=== PATIENT | female | born 1970 | race Caucasian/White ===

== ENCOUNTER → 2016-10-10 | Outpatient (CLI) | payer OTHER ==
--- NOTE | 2016-10-10 11:09 | MR ---
EXAMINATION TYPE: MR lumbar spine wo con DATE OF EXAM: 10/10/2016 10:52 AM COMPARISON: NONE HISTORY: Back pain, left leg pain TECHNIQUE: T1 and T2 axial and sagittal images of the lumbar spine are submitted. FINDINGS: There is no abnormal signal seen within the visualized spinal cord or paraspinal soft tissu es. L1-L2: Normal disc appearance without desiccation. No herniation, protrusion or disc bulging. No sruthi l stenosis is present. Foramina are patent bilaterally. L1 and small L2 hemangiomas. L2-L3: Normal disc appearance without desiccation. No herniation, protrusion or disc bulging. No sruthi l stenosis is present. Foramina are patent bilaterally. L3 hemangioma. L3-L4: Normal disc appearance without desiccation. No herniation, protrusion or disc bulging. No sruthi l stenosis is present. Foramina are patent bilaterally. Facet arthropathy noted. L4-L5: Mild disc desiccation. Mild posterior disc bulge. No herniation protrusion or central stenosis . Visualized foramina are patent. Facet arthropathy noted. L5-S1: Mild to moderate disc desiccation. Mild posterior disc bulge. No herniation protrusion or cent ral stenosis. Stable facet joint arthropathy. No foraminal encroachment. Lumbar segments are intact. Bone marrow heterogeneity is seen which may reflect bone marrow reconversion. [place] proliferative diso rder or other processes not excluded. Correlate with CBC. No paraspinal masses are identified. Conus medullaris has a normal appearance. IMPRESSION: 1. Mild degenerative disc disease with mild posterior disc bulging is stable. 2. Multiple hemangiomas. 3. Bone marrow heterogeneity as discussed above.
== END | disposition home or self-care (01) ==
LOC: RADMRIMAIN 09:54
PROVIDERS: ATTEND Psychiatry & Neurology Neurology
DX: M51.26 Other intervertebral disc displacement, lumbar region (principal); M51.36 Other intervertebral disc degeneration, lumbar region; D18.09 Hemangioma of other sites
CPT/HCPCS: 72148

== ENCOUNTER → 2016-10-23 | Outpatient (CLI) | payer OTHER ==
[2016-10-23 13:45] LABS: Basophils % (A) 1 %; CH 34.4; CHCM 33.4; Eosinophils # (A) 0.3 k/uL (0-0.7); Eosinophils % (A) 7 %; HCT 44.1 % (34.0-46.0); HDW 2.06; HGB 14.3 gm/dL (11.4-16.0); Luc # (Auto) 0.17; Luc % (Auto) 4; Lymphocytes # (A) 1.1 k/uL (1.0-4.8); Lymphocytes % (A) 28 %; MCH 33.5 pg (25.0-35.0); MCHC 32.4 g/dL (31.0-37.0); MCV 103.4 fL (80.0-100.0); Macrocytosis Slight; Mean Platelet Volume 8.4; Monocytes # (A) 0.2 k/uL (0-1.0); Monocytes % (A) 4 %; Neutrophils # (A) 2.4 k/uL (1.3-7.7); Neutrophils % (A) 57 %; RBC 4.26 m/uL (3.80-5.40); RDW 12.4 % (11.5-15.5); WBC 4.1 k/uL (3.8-10.6); WBC (Perox) 4.21
== END ==
LOC: LABWHC1 12:38
PROVIDERS: ATTEND Psychiatry & Neurology Pain Medicine
DX: D47.1 Chronic myeloproliferative disease (principal)
CPT/HCPCS: 36415; 84165; 85025; 86334

== ENCOUNTER → 2016-11-06 | Outpatient (CLI) | payer OTHER ==
[2016-11-06 13:24] LABS: CH 34.5; CHCM 33.7; HCT 43.4 % (34.0-46.0); HDW 2.14; HGB 14.2 gm/dL (11.4-16.0); MCH 33.6 pg (25.0-35.0); MCHC 32.8 g/dL (31.0-37.0); MCV 102.6 fL (80.0-100.0); Macrocytosis Slight; RBC 4.23 m/uL (3.80-5.40); RDW 12.3 % (11.5-15.5); WBC 3.5 k/uL (3.8-10.6)
[2016-11-06 13:44] LABS: C Reactive Protein <5.0 mg/L (<10.0); Calcium 10.2 mg/dL (8.4-10.2); Creatine Kinase 72 U/L (30-135); Magnesium 1.8 mg/dL (1.6-2.3)
[2016-11-06 14:26] LABS: Erythrocyte Sedimentation Rate 8 mm/hr (0-20)
[2016-11-06 14:29] LABS: Vitamin B12 944 pg/mL (239-931)
[2016-11-06 18:28] LABS: Hemoglobin A1C 5.4 % (4.2-6.1)
[2016-11-07 07:16] LABS: Cyclic Citrullinated Pep IgG 7 UNITS (<20)
[2016-11-08 06:18] LABS: Vitamin E (Alpha Tocopherol) 1093 ug/dL (500-1800)
[2016-11-10 19:03] LABS: Nicotinamide 22 ng/mL; Nicotinic Acid None Detected; Nicotinuric Acid None Detected
[2016-11-16 16:35] LABS: Vitamin K 145 pg/mL (80-1160)
== END | disposition home or self-care (01) ==
LOC: LABWHC1 12:48
PROVIDERS: ATTEND Psychiatry & Neurology Neurology
DX: M79.7 Fibromyalgia (principal); G89.29 Other chronic pain
CPT/HCPCS: 36415; 82306; 82310; 82550; 82607; 83036; 83519; 83735; 84207; 84425; 84446; 84590; 84591; 84597; 85027; 85652; 86140; 86200; 86235

== ENCOUNTER → 2017-03-05 | Outpatient (CLI) | payer OTHER ==
--- NOTE | 2017-03-05 10:35 | US ---
EXAMINATION TYPE: US thyroid st tissue head/neck DATE OF EXAM: 03/05/2017 COMPARISON: NONE CLINICAL HISTORY: 46-year-old female E04.1 thyroid nodule. On thyroid medication x 11 yrs.; prior sc an at [facility] TECHNIQUE: Multiple sonographic images of the thyroid gland are obtained. FINDINGS: GLAND SIZE: Right Lobe: 3.7 x 1.0 x 1.0 cm Overall Parenchyma: heterogenous Left Lobe: 3.2 x 1.1 x 0.8 cm Overall Parenchyma: heterogeneous Isthmus Thickness: 0.2 cm NODULES RIGHT: # of nodules measured on right: 0 LEFT: # of nodules measured on left: 1 1. 1.2 X 0.5 x 0.7 cm isoechoic solid nodule at the mid pole with well-defined margins. This nodul e is wider than tall and shows intranodular vascularity. Prior size: no prior here to compare ISTHMUS: # of nodules measured in the isthmus: 0 IMPRESSION: 1. The patient's prior exam is not available for comparison. There is a single solid nodule on the le ft measuring 1.2 cm. 2. Diffuse glandular heterogeneity could reflect chronic hypothyroidism or chronic thyroiditis.
== END | disposition home or self-care (01) ==
LOC: RADUSWWP 09:29
PROVIDERS: ATTEND Internal Medicine Endocrinology, Diabetes & Metabolism
DX: E04.1 Nontoxic single thyroid nodule (principal); E03.8 Other specified hypothyroidism; E07.89 Other specified disorders of thyroid
CPT/HCPCS: 76536; 84439; 84443

== ENCOUNTER → 2017-07-02 | Outpatient (CLI) | payer OTHER ==
--- NOTE | 2017-07-03 08:10 | MR ---
EXAMINATION TYPE: MR lumbar spine wo con DATE OF EXAM: 07/02/2017 COMPARISON: 10/10/2016 HISTORY: Low back pain CONTRAST: 0 mL intravenous Gadavist. TECHNIQUE: Multiplanar, multisequence images of the lumbar spine were acquired. FINDINGS: L5-S1: No focal disc herniation or significant disc bulge. No spinal canal stenosis or neural foramin al stenosis. Mild facet hypertrophy is present. L4-L5: No focal disc herniation or significant disc bulge is evident. There is some anterior thecal s ac flattening. No spinal canal stenosis or neural foraminal stenosis is present. L3-L4: No significant disc bulge or disc herniation. No spinal canal stenosis. No foraminal stenosi s. . L2-L3: No significant disc bulge or disc herniation. No spinal canal stenosis. No foraminal stenosi s. L3 hemangioma is likely present. L1-L2: No significant disc bulge or disc herniation. No spinal canal stenosis. No foraminal stenosi s. L1 hemangioma is again identified.. T12-L1: No significant disc bulge or disc herniation. No spinal canal stenosis. No foraminal stenos is. . There is some diffuse heterogeneity throughout the lumbar spine osseous structures. Findings are stab le over the interval. IMPRESSION: 1. Minimal degenerative disc changes lower lumbar spine without stenosis. 2. Heterogenous appearance to the osseous bone marrow is stable over the interval. Couple of hemangio mas are identified.
== END | disposition home or self-care (01) ==
LOC: RADMRIMAIN 11:47
PROVIDERS: ATTEND Psychiatry & Neurology Neurology
DX: M47.816 Spondylosis without myelopathy or radiculopathy, lumbar region (principal); D18.00 Hemangioma unspecified site; Z88.2 Allergy status to sulfonamides; Z88.6 Allergy status to analgesic agent
CPT/HCPCS: 72148

== ENCOUNTER → 2017-10-09 | Outpatient (CLI) | payer OTHER ==
--- NOTE | 2017-10-09 15:30 | MR ---
EXAMINATION TYPE: MR cervical spine wo con DATE OF EXAM: 10/09/2017 COMPARISON: 10/22/2012 HISTORY: Cervicalgia, crum, neck pain and numbness TECHNIQUE: Multiplanar, multisequence images of the cervical spine were acquired. C2-C3: No evidence for degenerative disc disease. No disc bulge/herniation or protrusion. No Canal stenosis. Foramina are patent bilaterally. C3-C4: No evidence for degenerative disc disease. No disc bulge/herniation or protrusion. No Canal stenosis. Foramina are patent bilaterally. C4-C5: No evidence for degenerative disc disease. No disc bulge/herniation or protrusion. No Canal stenosis. Foramina are patent bilaterally. C5-C6: No evidence for degenerative disc disease. No disc bulge/herniation or protrusion. No Canal stenosis. Foramina are patent bilaterally. C6-C7: Degenerative disc disease. Uncovertebral joint hypertrophy and left paracentral disc bulging i s stable with disc capped by spur resulting in mild to moderate left foraminal encroachment. No spina l cord contact or canal stenosis. C7-T1: No evidence for degenerative disc disease. No disc bulge/herniation or protrusion. No Canal stenosis. Foramina are patent bilaterally. Cervical segments are intact. There is normal alignment. Cervical spinal cord is of normal signal. Craniovertebral junction relationships are within normal limits. IMPRESSION: 1. Stable MRI. At C6-C7 there is degenerative disc disease and uncovertebral joint hypertrophy greater on the left. Paracentral disc bulging to the left is stable capped by spur resulting in mild to moderate left fora julia encroachment.
== END | disposition home or self-care (01) ==
LOC: RADMRIMAIN 09:42
PROVIDERS: ATTEND Psychiatry & Neurology Neurology
DX: M50.223 Other cervical disc displacement at C6-C7 level (principal); M50.323 Other cervical disc degeneration at C6-C7 level; M53.82 Other specified dorsopathies, cervical region; M46.02 Spinal enthesopathy, cervical region; Z88.2 Allergy status to sulfonamides; Z88.6 Allergy status to analgesic agent
CPT/HCPCS: 72141

== ENCOUNTER 2017-10-18 12:07 | Day surgery (SDC) | payer OTHER ==
[2017-10-18 12:23] VITALS: BP 153/89; PULSE 95; RESP 20; TEMP 98.5
[2017-10-18] MEDS ORDERED: ALPRAZolam 0.5 MG TAB PO STA (12:27)
--- NOTE | 2017-10-18 15:05 | US ---
EXAMINATION TYPE: US FNA thyroid DATE OF EXAM: 10/18/2017 COMPARISON: Ultrasound 03/05/2017 HISTORY: Thyroid nodule. Maximal barrier technique was utilized. After informed consent, skin overlying the lesion was locali zed with ultrasound and the overlying skin prepped and draped. Ultrasound was utilized using sterile technique. Lidocaine was used for local anesthesia. Five passes with a 25-gauge needle were made int o the nodule and aspirated specimen was submitted to cytology. Following the procedure hemostasis ac hieved. No immediate complication. The patient discharged in stable condition. IMPRESSION: STATUS POST ULTRASOUND GUIDED FINE NEEDLE ASPIRATION OF THYROID NODULE, PATHOLOGY IS PEND ING. THIS PROCEDURE WAS PERFORMED BY THE UNDERSIGNED.
== END 2017-10-18 13:45 | disposition home or self-care (01) ==
LOC: RADPROMAIN 12:07
PROVIDERS: ATTEND Surgery
DX: E04.1 Nontoxic single thyroid nodule (principal)
CPT/HCPCS: 10022; 76942; 88173; 88305

== ENCOUNTER → 2018-06-04 | Outpatient (CLI) | payer OTHER ==
[2018-06-04 12:49] LABS: HCT 40.3 % (34.0-46.0); HGB 12.8 gm/dL (11.4-16.0); MCH 32.1 pg (25.0-35.0); MCHC 31.8 g/dL (31.0-37.0); MCV 101.1 fL (80.0-100.0); Mean Platelet Volume 8.4; Platelet Count 178 k/uL (150-450); RBC 3.99 m/uL (3.80-5.40); RDW 12.3 % (11.5-15.5); WBC 6.6 k/uL (3.8-10.6)
[2018-06-04 18:42] LABS: Albumin/Globulin Ratio 2.17 (1.20-2.10); Anion Gap 11.4 mmol/L (4.00-12.00); Calcium 10.2 mg/dL (8.7-10.3); Carbon Dioxide 21.6 mmol/L (21.6-31.8); Globulin 2.3 g/dL (2.1-3.7); Potassium 3.8 mmol/L (3.5-5.5); Total Bilirubin 0.8 mg/dL (0.3-1.2); Total Protein 7.3 g/dL (6.2-8.2)
== END | disposition home or self-care (01) ==
LOC: LABWHC1 11:50
PROVIDERS: ATTEND Physician Assistant
DX: I49.9 Cardiac arrhythmia, unspecified (principal); D47.1 Chronic myeloproliferative disease
CPT/HCPCS: 36415; 80053; 85027; 86334; 93005

== ENCOUNTER 2018-12-09 11:51 | Day surgery (SDC) | payer OTHER ==
[2018-12-05 11:39] VITALS: BMI 23.0
[~2018-12-09 11:51] MED LIST: LACTATED RINGERS 1,000 ML IV SCH; LIDOCAINE 1% 20 ML VIAL (10MG/ML) FOR IV START INTRADERMA PRN
[2018-12-09] MEDS ORDERED: LIDOCAINE 1% 20 ML VIAL (10MG/ML) FOR IV START INTRADERMA ONE (12:20)
[2018-12-09 12:23] VITALS: RESP 16; TEMP 98.2
[2018-12-09] MEDS ORDERED: ONDANSETRON 4 MG/2 ML VIAL IVP ONE (12:28)
[2018-12-09] MEDS ORDERED: fentaNYL (PF) 50 MCG/ML 2 ML AMP ONE (12:46)
[2018-12-09] MEDS ORDERED: MIDAZOLAM 2 MG/2 ML VIAL ONE (12:46)
[2018-12-09] MEDS ORDERED: PROPOFOL 10 MG/ML 20 ML VIAL IV ONE (12:46)
--- NOTE | 2018-12-09 13:34 | P.PCN ---
Date of Procedure: 12/09/18 Procedure(s) Performed: Procedure: 1. Esophagogastroduodenoscopy and biopsy. 2. Total colonoscopy. Preoperative diagnosis: Gastroesophageal reflux, nausea and history of colon polyps as well as change in bowel habits. Postoperative diagnosis: 1. Small sliding hiatal hernia with no obvious esophagitis or complicated reflux disease. 2. Gastritis and duodenitis. 3. Multiple biopsies obtained from the duodenum, antrum and esophagus. 4. Diverticulosis with no evidence of acute diverticulitis, strictures, polyps or cancer. Preparation: HalfLytely prep. Sedation: Was provided by anesthesia. Brief clinical history: The patient is a 48-year-old female who I have evaluated in the office earlier this month and scheduled her for this evaluation because of gastroesophageal reflux symptoms and nausea, change in bowel habits and history of polyps. Procedure: With the patient on her left lateral decubitus position and after informed consent and adequate sedation, I passed the Olympus-GIF H 190 video upper endoscope through the cricopharyngeus down the esophagus. GE junction was around 36 cm from the incisors and there was a small sliding hiatal hernia but no obvious esophagitis or complicated reflux disease. The endoscope was then passed into the stomach which was insufflated with air and inspected in detail including the retroflex view in the cardia. There was mottling, erythema in the antrum but no ulcers or bleeding. Pyloric channel did not show any ulcers. Duodenal bulb, post bulbar area and descending duodenum appeared within normal limits. I obtained biopsies from the duodenum, antrum and esophagus then the endoscope was withdrawn and I proceeded to perform the colonoscopy. Perianal area did not show any fissures or fistulas. There were no masses felt on digital rectal examination. The Olympus CFH 190 L video colonoscope was then inserted in the rectum in the usual fashion and advanced to the cecum. There were several diverticular orifices seen scattered along the length of the bowel, more on the left side and sigmoid, but there was no evidence of acute diverti culitis or strictures. The mucosa appeared healthy. No polyps or tumors were seen. I retroflexed the endoscope in the rectum before the endoscope was withdrawn. The patient tolerated the procedure well. Plan: The patient was reassured. Discussed dietary measures. Will await biopsy results. She will follow-up with you as planned and with her history of polyps, I recommended repeat colonoscopy in 5 years.
[2018-12-09 13:37] VITALS: BP 147/92; PULSE 86
== END 2018-12-09 13:58 | disposition home or self-care (01) ==
LOC: ORWHC2ENDO 11:51
DX: K29.50 Unspecified chronic gastritis without bleeding (principal); K29.80 Duodenitis without bleeding; K21.0 Gastro-esophageal reflux disease with esophagitis; K44.9 Diaphragmatic hernia without obstruction or gangrene; K57.30 Diverticulosis of large intestine without perforation or abscess without bleeding; I10 Essential (primary) hypertension; J45.909 Unspecified asthma, uncomplicated; F17.200 Nicotine dependence, unspecified, uncomplicated; M79.7 Fibromyalgia; Z79.891 Long term (current) use of opiate analgesic; Z79.890 Hormone replacement therapy; Z86.010 Personal history of colon polyps; Z88.2 Allergy status to sulfonamides; Z88.6 Allergy status to analgesic agent; Z79.899 Other long term (current) drug therapy
CPT/HCPCS: 81025; 88305; 45378; 43239; J2250; J2405; J3010; J2704

== ENCOUNTER 2024-04-20 09:03 | Inpatient (IN) | payer MEDICARE, OTHER ==
--- NOTE | 2024-04-20 10:02 | XR ---
EXAMINATION TYPE: XR Hip Complete LT DATE OF EXAM: 04/20/2024 CLINICAL HISTORY: pain TECHNIQUE: AP and frogleg views of the left hip are obtained. COMPARISON: None. FINDINGS: Comminuted intertrochanteric fracture left hip. No additional fracture seen. Hip joint spac e is well-preserved. IMPRESSION: 1. Comminuted intertrochanteric fracture left hip.
[2024-04-20] MEDS: SODIUM CHLORIDE 0.9% 500 ML 500 ML IV ONE (10:11)
[2024-04-20] MEDS: HYDROmorphone 1 MG/ML 1 ML SYRINGE IVP STA ×2 (10:12→12:04)
[2024-04-20] MEDS: ONDANSETRON 4 MG/2 ML VIAL IVP STA (10:14)
--- NOTE | 2024-04-20 10:38 | XR ---
EXAMINATION TYPE: XR chest 1V portable DATE OF EXAM: 04/20/2024 10:30 AM CLINICAL INDICATION: Female, 53 years old with history of surgery; COMPARISON: Chest radiographs from 11/25/2010 TECHNIQUE: XR chest 1V portable Frontal view of the chest. FINDINGS: Lungs/Pleura: There is no evidence of pleural effusion, focal consolidation, or pneumothorax. Pulmonary vascularity: Unremarkable. Heart/mediastinum: Cardiomediastinal silhouette is unremarkable. Musculoskeletal: No acute osseous pathology. IMPRESSION: No acute cardiopulmonary disease/process.
[2024-04-20 11:42] LABS: ALT 70 U/L (4-34); AST 65 U/L (14-36); African American GFR (CKD) >90 (>60 ml/min/1.73 sqM); Alkaline Phosphatase 197 U/L (38-126); Anion Gap 16 mmol/L; Blood Urea Nitrogen 13 mg/dL (7-17); Calcium 9.6 mg/dL (8.4-10.2); Carbon Dioxide 10 mmol/L (22-30); Chloride 107 mmol/L (98-107); Creatine Kinase 139 U/L (30-135); Glucose 97 mg/dL (74-99); Non-African American GFR(CKD) >90 (>60 ml/min/1.73 sqM); Potassium 3.5 mmol/L (3.5-5.1); Sodium 133 mmol/L (137-145); Total Bilirubin 0.5 mg/dL (0.2-1.3); Total Protein 6.5 g/dL (6.3-8.2)
[2024-04-20 11:49] LABS: INR 0.9 (<1.2)
--- NOTE | 2024-04-20 11:54 | ED ---
Fall HPI - General Chief Complaint: Fall Stated Complaint: Fall, hip pain Time Seen by Provider: 04/20/24 09:10 Source: patient, EMS Mode of arrival: EMS - History of Present Illness Initial Comments: 53-year-old female with past history of asthma, fibromyalgia, hypertension who presents emergency department after a fall. States that she tripped over a lip in her floor and landed on her left leg. Patient was unable to get up from a seated position on the ground. States that she was there for approximately 2 hours before she was able to notify her who called EMS. Patient does have obvious shortening or rotation. Denies previous history of joint surgery. She denies hitting her head or losing consciousness. Patient does not take blood thinners. Patient did receive 5 mg of morphine and 4 mg of Zofran prior to hospital arrival. No other alleviating, precipitating modifying factors - Related Data Home Medications Medication Instructions Recorded Confirmed Ibuprofen [Motrin] 600 mg PO TID PRN 10/11/17 04/20/24 Loratadine 10 mg PO DAILY 10/11/17 04/20/24 Baclofen 10 mg PO HS 04/20/24 04/20/24 Levothyroxine Sodium [Synthroid] 137 mcg PO DAILY 04/20/24 04/20/24 Previous Rx's Medication Instructions Recorded HYDROcodone/APAP 5-325MG [Telluride 1 - 2 tab PO Q6HR PRN #32 tab 04/21/24 5-325] Rivaroxaban [Xarelto] 10 mg PO DAILY #30 tab 04/21/24 Sennosides [Senokot] 2 tab PO DAILY PRN #60 tablet 04/21/24 LORazepam [Ativan] 0.5 mg PO BID PRN #4 tab 04/24/24 Losartan [Cozaar] 50 mg PO DAILY #0 04/24/24 Allergies Allergy/AdvReac Type Severity Reaction Status Date / Time celecoxib [From Celebrex] Allergy Rash/Hives Verified 04/21/24 09:39 naproxen [From Aleve] Allergy Rash/Hives Verified 04/21/24 09:39 Sulfa (Sulfonamide Allergy Rash/Hives Verified 04/21/24 09:39 Antibiotics) Review of Systems ROS Statement: Those systems with pertinent positive or pertinent negative responses have been documented in the HPI. ROS Other: All systems not noted in ROS Statement are negative. Past Medical History Past Medical History: Asthma, Fibromyalgia, Hypertension, Musculoskeletal Disorder, Thyroid Disorder Additional Past Medical History / Comment(s): change in bowel habits, hx of colon polyps, chronic back pain/leg pain, DDD, hx of migraines History of Any Multi-Drug Resistant Organisms: None Reported Past Surgical History: Cholecystectomy, Orthopedic Surgery, Uterine Ablation Additional Past Surgical History / Comment(s): septoplasty, ovarian cyst removed, ganglion cyst removed Past Anesthesia/Blood Transfusion Reactions: Postoperative Nausea & Vomiting (PONV) Past Psychological History: No Psychological Hx Reported Past Alcohol Use History: Occasional Past Drug Use History: None Reported - Past Family History Mother Family Medical History: Cancer, Thyroid Disorder Additional Family Medical History / Comment(s): chest tumor, spread to brain Father Family Medical History: Congestive Heart Failure (CHF), Hypertension General Exam Limitations: no limitations General appearance: alert, in no apparent distress Head exam: Present: atraumatic, normocephalic, normal inspection Eye exam: Present: normal appearance, PERRL, EOMI. Absent: scleral icterus, c onjunctival injection, periorbital swelling ENT exam: Present: normal exam, mucous membranes moist Neck exam: Present: normal inspection. Absent: tenderness, meningismus, lymphadenopathy Respiratory exam: Present: normal lung sounds bilaterally. Absent: respiratory distress, wheezes, rales, rhonchi, stridor Cardiovascular Exam: Present: regular rate, normal rhythm, normal heart sounds. Absent: systolic murmur, diastolic murmur, rubs, gallop, clicks GI/Abdominal exam: Present: soft, normal bowel sounds. Absent: distended, tenderness, guarding, rebound, rigid Extremities exam: Present: tenderness (Patient has pain to the left hip. This leg is shortened and rotated), normal capillary refill. Absent: pedal edema, joint swelling, calf tenderness Back exam: Present: normal inspection Neurological exam: Present: alert, oriented X3, CN II-XII intact Psychiatric exam: Present: normal affect, normal mood Skin exam: Present: warm, dry, intact, normal color. Absent: rash Course Vital Signs 04/20/24 04/20/24 04/20/24 09:06 09:07 09:30 Temperature 97.8 F Pulse Rate 100 Respiratory 18 Rate Blood Pressure 112/75 112/75 112/75 O2 Sat by Pulse 99 98 99 Oximetry 04/20/24 04/20/24 04/20/24 10:00 10:16 10:30 Temperature Pulse Rate 105 H Respiratory 18 Rate Blood Pressure 120/84 133/83 133/83 O2 Sat by Pulse 99 100 99 Oximetry 04/20/24 04/20/24 04/20/24 11:00 11:30 12:00 Temperature Pulse Rate Respiratory Rate Blood Pressure 157/93 155/92 138/93 O2 Sat by Pulse 100 100 98 Oximetry 04/20/24 04/20/24 04/20/24 12:30 13:00 13:30 Temperature Pulse Rate Respiratory Rate Blood Pressure 148/90 135/86 153/93 O2 Sat by Pulse 97 99 98 Oximetry 04/20/24 04/20/24 04/20/24 14:00 14:21 14:30 Temperature Pulse Rate 101 H Respiratory 18 Rate Blood Pressure 147/91 164/95 164/95 O2 Sat by Pulse 98 100 99 Oximetry 04/20/24 04/20/24 04/20/24 15:00 15:30 16:00 Temperature Pulse Rate Respiratory Rate Blood Pressure 168/92 145/89 164/91 O2 Sat by Pulse 98 98 98 Oximetry 04/20/24 04/20/24 04/20/24 16:30 17:00 17:30 Temperature Pulse Rate Respiratory Rate Blood Pressure 165/100 159/100 153/91 O2 Sat by Pulse 98 99 99 Oximetry 04/20/24 04/20/24 20:00 20:48 Temperature Pulse Rate 112 H 96 Respiratory 20 18 Rate Blood Pressure 161/91 158/84 O2 Sat by Pulse 99 98 Oximetry Medical Decision Making - Medical Decision Making Was pt. sent in by a medical professional or institution (, PA, CLINICAL SUPPORT NURSE, urgent care, hospital, or [facility]...) When possible be specific @ -No Did you speak to anyone other than the patient for history (EMS, parent, family, police, friend...)? What history was obtained from this source @ -Spoke with EMS for history Did you review nursing and triage notes (agree or disagree)? Why? @ -I reviewed and agree with nursing and triage notes Were old charts reviewed (outside hosp., previous admission, EMS record, old EKG, old radiological studies, urgent care reports/EKG's, [facility] records)? Report findings @ -No old charts were reviewed Differential Diagnosis (chest pain, altered mental status, abdominal pain women, abdominal pain men, vaginal bleeding, weakness, fever, dyspnea, syncope, headache, dizziness, GI bleed, back pain, seizure, CVA, palpatations, mental health, musculoskeletal)? @ -Differential Musculoskeletal Muscular strain, contusion, ligament sprain, fracture, arthritis, septic arthritis, bursitis, cellulitis, muscle spasm, nerve compression, DVT, arterial occlusion, herpes zoster, electrolyte abnormality, tumor.... This is not meant to be in all inclusive list EKG interpreted by me (3pts min.). @ -Yes and demonstrates a sinus rhythm with a rate of 95. LA interval 156. QRS 90. QTc of 422. No acute ST segment elevations or depressions X-rays interpreted by me (1pt min.). @ -Yes and demonstrates left hip fracture CT interpreted by me (1pt min.). @ -None done U/S interpreted by me (1pt. min.). @ -None done What testing was considered but not performed or refused? (CT, X-rays, U/S, labs)? Why? @ -None What meds were considered but not given or refused? Why? @ -None Did you discuss the management of the patient with other professionals (professionals i.e. , PA, CLINICAL SUPPORT NURSE, lab, RT, psych nurse, social director, concaver, teacher, bsa officer, disease case manager rn)? Give summary @ -Spoke with Dr. Whalen who will admit the patient Was smoking cessation discussed for >3mins.? @ -No Was critical care preformed (if so, how long)? @ -No Were there social determinants of health that impacted care today? How? (Home lessness, low income, unemployed, alcoholism, drug addiction, transportation, low edu. Level, literacy, decrease access to med. care, long term, rehab)? @ -No Was there de-escalation of care discussed even if they declined (Discuss DNR or withdrawal of care, Hospice)? DNR status @ -No What co-morbidities impacted this encounter? (DM, HTN, Smoking, COPD, CAD, Cancer, CVA, ARF, Chemo, Hep., AIDS, mental health diagnosis, sleep apnea, morbid obesity)? @ -None Was patient admitted / discharged? Hospital course, mention meds given and route, prescriptions, significant lab abnormalities, going to OR and other pertinent info. @ -Upon arrival patient seen and evaluated in room 18. Thorough history and physical exam was performed. X-rays are performed which demonstrates a left hip fracture. I did call speak with Dr. Grey. He will admit the patient. Patient remains in stable condition Undiagnosed new problem with uncertain prognosis? @ -No Drug Therapy requiring intensive monitoring for toxicity (Heparin, Nitro, Insulin, Cardizem)? @ -No Were any procedures done? @ -No Diagnosis/symptom? @ -Acute fall, acute left hip fracture Acute, or Chronic, or Acute on Chronic? @ -Acute Uncomplicated (without systemic symptoms) or Complicated (systemic symptoms)? @ -Complicated Side effects of treatment? @ -No Exacerbation, Progression, or Severe Exacerbation? @ -No Poses a threat to life or bodily function? How? (Chest pain, [place], [place], pneumonia, PE, COPD, DKA, ARF, appy, cholecystitis, CVA, Diverticulitis, Homicidal, Suicidal, threat to staff... and all critical care pts) @ -No - Lab Data Result diagrams: 04/24/24 04:41 04/22/24 06:37 Lab Results 04/20/24 04/20/24 04/20/24 Range/Units 10:06 10:06 10:06 WBC 7.1 (3.8-10.6) k/uL RBC 2.77 L (3.80-5.40) m/uL Hgb 9.6 L (11.4-16.0) gm/dL Hct 29.1 L (34.0-46.0) % MCV 105.4 H (80.0-100.0) fL MCH 34.8 (25.0-35.0) pg MCHC 33.0 (31.0-37.0) g/dL RDW 12.9 (11.5-15.5) % Plt Count 167 (150-450) k/uL MPV 11.2 Neutrophils % 77 % Lymphocytes % 18 % Monocytes % 4 % Eosinophils % 0 % Basophils % 0 % Neutrophils # 5.5 (1.3-7.7) k/uL Lymphocytes # 1.3 (1.0-4.8) k/uL Monocytes # 0.3 (0-1.0) k/uL Eosinophils # 0.0 (0-0.7) k/uL Basophils # 0.0 (0-0.2) k/uL Macrocytosis Slight PT 10.0 (10.0-12.5) sec INR 0.9 (<1.2) Sodium 133 L (137-145) mmol/L Potassium 3.5 (3.5-5.1) mmol/L Chloride 107 (98-107) mmol/L Carbon Dioxide 10 L (22-30) mmol/L Anion Gap 16 mmol/L BUN 13 (7-17) mg/dL Creatinine 0.67 (0.52-1.04) mg/dL Est GFR (CKD-EPI)AfAm >90 (>60 ml/min/1.73 sqM) Est GFR (CKD-EPI)NonAf >90 (>60 ml/min/1.73 sqM) Glucose 97 (74-99) mg/dL Calcium 9.6 (8.4-10.2) mg/dL Total Bilirubin 0.5 (0.2-1.3) mg/dL AST 65 H (14-36) U/L ALT 70 H (4-34) U/L Alkaline Phosphatase 197 H (38-126) U/L Creatine Kinase 139 H (30-135) U/L Total Protein 6.5 (6.3-8.2) g/dL Albumin 4.0 (3.5-5.0) g/dL Disposition Clinical Impression: Fall, Left hip pain, Intertrochanteric fracture Disposition: ADMITTED IP TO THIS [facility] Condition: Stable Is patient prescribed a controlled substance at d/c from ED?: No Time of Disposition: 11:55 Decision to Admit Reason: Admit from EC Decision Date: 04/20/24 Decision Time: 11:55
[2024-04-20] MEDS ORDERED: HYDROmorphone 1 MG/ML 1 ML SYRINGE IVP PRN (11:56)
[2024-04-20] MEDS ORDERED: NALOXONE 0.4 MG/ML 1 ML VIAL IV PRN (11:56)
[2024-04-20] MEDS: ONDANSETRON 4 MG/2 ML VIAL IVP PRN (12:05)
[2024-04-20] MEDS: SODIUM CHLORIDE 0.9% 1,000 ML IV SCH (12:08)
[2024-04-20 12:11] LABS: Basophils % (A) 0 %; Eosinophils % (A) 0 %; HCT 29.1 % (34.0-46.0); HGB 9.6 gm/dL (11.4-16.0); Lymphocytes # (A) 1.3 k/uL (1.0-4.8); Lymphocytes % (A) 18 %; MCH 34.8 pg (25.0-35.0); MCV 105.4 fL (80.0-100.0); Macrocytosis Slight; Mean Platelet Volume 11.2; Monocytes # (A) 0.3 k/uL (0-1.0); Monocytes % (A) 4 %; Neutrophils # (A) 5.5 k/uL (1.3-7.7); Neutrophils % (A) 77 %; Platelet Count 167 k/uL (150-450); RBC 2.77 m/uL (3.80-5.40); RDW 12.9 % (11.5-15.5); WBC 7.1 k/uL (3.8-10.6)
--- NOTE | 2024-04-20 15:01 | P.CONS ---
History of Present Illness - Reason for Consult Preoperative clearance - History of Present Illness 53-year-old female had a mechanical fall and found to have intertrochanteric fracture on the left femur. Patient is bit hyponatremic patient denied any chest pain nausea vomiting fever chills shortness of breath denied any history of coronary artery disease. Patient denied any syncopal episode. REVIEW OF SYSTEMS: All other systems are negative except those mentioned in the HPI PHYSICAL EXAMINATION: GENERAL: The patient is alert and oriented x3, not in any acute distress. Well developed, well nourished. HEENT: Pupils are round and equally reacting to light. EOMI. No scleral icterus. No conjunctival pallor. Normocephalic, atraumatic. No pharyngeal erythema. No thyromegaly. CARDIOVASCULAR: S1 and S2 present. No murmurs, rubs, or gallops. PULMONARY: Chest is clear to auscultation, no wheezing or crackles. ABDOMEN: Soft, nontender, nondistended, normoactive bowel sounds. No palpable organomegaly. MUSCULOSKELETAL: Deferred to orthopedic surgery EXTREMITIES: No cyanosis, clubbing, or pedal edema. NEUROLOGICAL: Gross neurological examination did not reveal any focal deficits. SKIN: No rashes. Assessment and plan -Left femoral intertrochanteric fracture: Patient is low operative risk for surgery. Will obtain an EKG. Patient is not tolerating opiates can be started on as needed nonsteroidal anti-inflammatories or IV Tylenol -Hypovolemic hyponatremia patient will be started on IV fluids -Hypothyroidism resume levothyroxine -Hypertension elevated blood pressure secondary to pain, patient will be resumed on home medications will monitor blood pressure closely. DVT prophylaxis: As per primary service Past Medical History Past Medical History: Asthma, Fibromyalgia, Hypertension, Musculoskeletal Disorder, Thyroid Disorder Additional Past Medical History / Comment(s): change in bowel habits, hx of colon polyps, chronic back pain/leg pain, DDD, hx of migraines History of Any Multi-Drug Resistant Organisms: None Reported Past Surgical History: Cholecystectomy, Orthopedic Surgery, Uterine Ablation Additional Past Surgical History / Comment(s): septoplasty, ovarian cyst removed, ganglion cyst removed Past Anesthesia/Blood Transfusion Reactions: Postoperative Nausea & Vomiting (PONV) Past Psychological History: No Psychological Hx Reported Past Alcohol Use History: Occasional Past Drug Use History: None Reported - Past Family History Mother Family Medical History: Cancer, Thyroid Disorder Additional Family Medical History / Comment(s): chest tumor, spread to brain Father Family Medical History: Congestive Heart Failure (CHF), Hypertension Medications and Allergies Home Medications Medication Instructions Recorded Confirmed Type Ibuprofen [Motrin] 600 mg PO TID PRN 10/11/17 04/20/24 History Loratadine 10 mg PO DAILY 10/11/17 04/20/24 History Baclofen 10 mg PO HS 04/20/24 04/20/24 History LORazepam [Ativan] 0.5 mg PO BID PRN 04/20/24 04/20/24 History Levothyroxine Sodium [Synthroid] 137 mcg PO DAILY 04/20/24 04/20/24 History Losartan [Cozaar] 50 mg PO BID 04/20/24 04/20/24 History Allergies Allergy/AdvReac Type Severity Reaction Status Date / Time celecoxib [From Celebrex] Allergy Rash/Hives Verified 04/20/24 11:05 naproxen [From Aleve] Allergy Rash/Hives Verified 04/20/24 11:05 Sulfa (Sulfonamide Allergy Rash/Hives Verified 04/20/24 11:05 Antibiotics) Physical Exam Vitals: Vital Signs Temp Pulse Resp BP Pulse Ox 04/20/24 14:21 101 H 18 164/95 100 04/20/24 10:16 105 H 18 133/83 100 04/20/24 09:06 97.8 F 100 18 112/75 99 Intake and Output 04/20/24 04/20/24 04/20/24 06:59 14:59 22:59 Output Total 400 Balance -400 Output: Urine 400 Uretheral (Hilario) 400 Other: Weight 58.967 kg Results CBC & Chem 7: 04/20/24 10:06 04/20/24 10:06 Labs: Abnormal Lab Results - Last 24 Hours (Table) 04/20/24 04/20/24 Range/Units 10:06 10:06 RBC 2.77 L (3.80-5.40) m/uL Hgb 9.6 L (11.4-16.0) gm/dL Hct 29.1 L (34.0-46.0) % MCV 105.4 H (80.0-100.0) fL Sodium 133 L (137-145) mmol/L Carbon Dioxide 10 L (22-30) mmol/L AST 65 H (14-36) U/L ALT 70 H (4-34) U/L Alkaline Phosphatase 197 H (38-126) U/L Creatine Kinase 139 H (30-135) U/L
[2024-04-20] MEDS: LORazepam 0.5 MG TAB PO PRN (17:45)
[2024-04-20] MEDS: KETOROLAC 15 MG/ML 1 ML VIAL IVP PRN (17:45)
[2024-04-20] MEDS: LOSARTAN 50 MG TAB PO SCH (20:39)
[2024-04-20] MEDS: FAMOTIDINE 20 MG TAB PO SCH (20:39)
[2024-04-20] MEDS: MORPHINE SULFATE 4 MG/ML SYRINGE IVP PRN (21:09)
[2024-04-20] MEDS: ACETAMINOPHEN IV (For NPO) 1,000 MG in EMPTY BAG 1 BAG IVPB PRN (22:33)
[2024-04-21] MEDS: LEVOTHYROXINE 137 MCG TAB PO SCH (06:48)
[2024-04-21] MEDS: LORATADINE 10 MG TAB PO SCH (07:42)
[2024-04-21 08:33] LABS: Basophils # (A) 0.04 X 10*3/uL (0.00-0.10); Basophils % (A) 0.8 %; Eosinophils # (A) 0.06 X 10*3/uL (0.04-0.35); Eosinophils % (A) 1.2 %; HGB 7.2 g/dL (12.0-15.0); Lymphocytes # (A) 1.82 X 10*3/uL (0.90-5.00); Lymphocytes % (A) 35.4 %; MCH 34.6 pg (27.0-32.0); MCHC 34.3 g/dL (32.0-37.0); Mean Platelet Volume 12.6 FL (9.5-12.2); Monocytes # (A) 0.43 X 10*3/uL (0.20-1.00); Monocytes % (A) 8.4 %; NRBC Per 100 WBC 0 X 10*3/uL (0.00-0.01); Neutrophils # (A) 2.77 X 10*3/uL (1.80-7.70); Neutrophils % (A) 53.8 %; Platelet Count 108 X 10*3/uL (140-440); RBC 2.08 X 10*6/uL (4.10-5.20); RDW 12.7 % (11.5-14.5); WBC 5.14 X 10*3/uL (4.50-10.00)
[2024-04-21 08:43] LABS: Blood Urea Nitrogen 12.9 mg/dL (9.0-27.0); Calcium 8.9 mg/dL (8.7-10.3); Carbon Dioxide 15.1 mmol/L (21.6-31.8); Chloride 107 mmol/L (96-109); Glucose 88 mg/dL (70-110); Potassium 3.3 mmol/L (3.5-5.5); Sodium 136 mmol/L (135-145)
--- NOTE | 2024-04-21 09:10 | P.HPOR ---
History of Present Illness H&P Date: 04/21/24 This is a 53-year-old female who is admitted for a left hip fracture. Patient states that she tripped and fell at home and injured the left hip. Patient states that she has had to use a walker to ambulate for the last 2 years. Patient's family is present at bedside today and states that the patient has sustained several fractures over the last few months. Patient states that she has been wearing a postop shoe for recent right toe fractures. Patient states that she has been told she has significant osteoporosis. Patient's past medical history also includes neuropathy, asthma, fibromyalgia, hypertension and a thyroid disorder. Patient denies any head injury or loss of consciousness. Review of Systems See HPI. Past Medical History Past Medical History: Asthma, Fibromyalgia, Hypertension, Musculoskeletal Disorder, Thyroid Disorder Additional Past Medical History / Comment(s): change in bowel habits, hx of colon polyps, chronic back pain/leg pain, DDD, hx of migraines, osteoporosis History of Any Multi-Drug Resistant Organisms: None Reported Past Surgical History: Cholecystectomy, Uterine Ablation Additional Past Surgical History / Comment(s): septoplasty, ovarian cyst removed, ganglion cyst removed Past Anesthesia/Blood Transfusion Reactions: Postoperative Nausea & Vomiting (PONV) Past Psychological History: No Psychological Hx Reported Smoking Status: Current every day smoker Past Alcohol Use History: Occasional Additional Past Alcohol Use History / Comment(s): SMOKES 1/2PPD FROM AGE 17 Past Drug Use History: None Reported - Past Family History Mother Family Medical History: Cancer, Thyroid Disorder Additional Family Medical History / Comment(s): chest tumor, spread to brain Father Family Medical History: Congestive Heart Failure (CHF), Hypertension Medications and Allergies Home Medications Medication Instructions Recorded Confirmed Type Ibuprofen [Motrin] 600 mg PO TID PRN 10/11/17 04/20/24 History Loratadine 10 mg PO DAILY 10/11/17 04/20/24 History Baclofen 10 mg PO HS 04/20/24 04/20/24 History LORazepam [Ativan] 0.5 mg PO BID PRN 04/20/24 04/20/24 History Levothyroxine Sodium [Synthroid] 137 mcg PO DAILY 04/20/24 04/20/24 History Losartan [Cozaar] 50 mg PO BID 04/20/24 04/20/24 History Allergies Allergy/AdvReac Type Severity Reaction Status Date / Time celecoxib [From Celebrex] Allergy Rash/Hives Verified 04/20/24 11:05 naproxen [From Aleve] Allergy Rash/Hives Verified 04/20/24 11:05 Sulfa (Sulfonamide Allergy Rash/Hives Verified 04/20/24 11:05 Antibiotics) Physical Examination On exam patient is resting comfortably in bed in no acute distress. Patient is alert and oriented 3. Left lower extremity: Shortened and externally rotated. Skin is intact. There is generalized tenderness to palpation. Limited range of motion secondary to her fracture. Calf is soft and nontender to palpation. Sensation intact. Neurovascular status and circulatory status are intact. Right lower extremity: There is no swelling of the right lower extremity. There are patches of dry flaky skin. There is no erythema. There is no swelling of the right foot. calf is soft and nontender to palpation. Sensation intact. Neurovascular status and circulatory status are intact. Exams of the head, neck and bilateral upper extremities are within normal limits. Results X-rays of the left hip and pelvis dated 04/20/2024 reveal a displaced comminuted intertrochanteric fracture of the left femur. - Labs Labs: Abnormal Lab Results - Last 24 Hours (Table) 04/20/24 04/20/24 04/21/24 Range/Units 10:06 10:06 05:09 RBC 2.77 L 2.08 L (3.80-5.40) m/uL Hgb 9.6 L 7.2 L (11.4-16.0) gm/dL Hct 29.1 L 21.0 L (34.0-46.0) % MCV 105.4 H 101.0 H (80.0-100.0) fL MCH 34.6 H (27.0-32.0) pg Plt Count 108 L (140-440) X 10*3/uL MPV 12.6 H (9.5-12.2) FL Sodium 133 L (137-145) mmol/L Potassium (3.5-5.5) mmol/L Carbon Dioxide 10 L (22-30) mmol/L Anion Gap (4.00-12.00) mmol/L BUN/Creatinine Ratio (12.00-20.00) Ratio AST 65 H (14-36) U/L ALT 70 H (4-34) U/L Alkaline Phosphatase 197 H (38-126) U/L Creatine Kinase 139 H (30-135) U/L 04/21/24 Range/Units 05:09 RBC (3.80-5.40) m/uL Hgb (11.4-16.0) gm/dL Hct (34.0-46.0) % MCV (80.0-100.0) fL MCH (27.0-32.0) pg Plt Count (140-440) X 10*3/uL MPV (9.5-12.2) FL Sodium (137-145) mmol/L Potassium 3.3 L (3.5-5.5) mmol/L Carbon Dioxide 15.1 L (22-30) mmol/L Anion Gap 13.90 H (4.00-12.00) mmol/L BUN/Creatinine Ratio 21.50 H (12.00-20.00) Ratio AST (14-36) U/L ALT (4-34) U/L Alkaline Phosphatase (38-126) U/L Creatine Kinase (30-135) U/L H & H 04/20/24 04/21/24 Range/Units 10:06 05:09 Hgb 9.6 L 7.2 L (11.4-16.0) gm/dL Hct 29.1 L 21.0 L (34.0-46.0) % Coagulation 04/20/24 Range/Units 10:06 INR 0.9 (<1.2) Result Diagrams: 04/21/24 05:09 04/21/24 05:09 Assessment and Plan (1) Intertrochanteric fracture of left hip Current Visit: Yes Status: Acute Code(s): S72.142A - DISPLACED INTERTROCHANTERIC FRACTURE OF LEFT FEMUR, INIT SNOMED Code(s): 401057850 (2) Intertrochanteric fracture Current Visit: Yes Status: Acute Code(s): S72.143A - DISPLACED INTERTROCHANTERIC FRACTURE OF UNSP FEMUR, INIT SNOMED Code(s): 284530445 Plan: 1. Patient has been NPO. 2. Continue bedrest and pain control. 3. Appreciate input from internal medicine. 4. Planning for closed reduction and intramedullary nailing of the left hip later today pending patient consent.
[2024-04-21] MEDS ORDERED: Potassium Replacement Protocol 1 EACH MISC MISCELLANE PRN (09:24)
[2024-04-21] MEDS: DEXAMETHASONE SOD PHOSPHATE 4 MG/ML 1 ML VIAL IVP STA (10:00)
[2024-04-21] MEDS: LACTATED RINGERS 1,000 ML BAG IV STA (10:15)
[2024-04-21] MEDS: IV FLUID CONTINUATION 1,000 ML IV ONE (10:16)
[2024-04-21] MEDS: fentaNYL (PF) 50 MCG/ML 2 ML AMP IVP STA (10:22)
[2024-04-21 10:26] LABS: Basophils % (A) 0 %; Eosinophils # (A) 0.1 k/uL (0-0.7); Eosinophils % (A) 1 %; HCT 24.2 % (34.0-46.0); HGB 8.2 gm/dL (11.4-16.0); Lymphocytes # (A) 1.6 k/uL (1.0-4.8); Lymphocytes % (A) 28 %; MCH 35.4 pg (25.0-35.0); MCHC 33.7 g/dL (31.0-37.0); MCV 105.2 fL (80.0-100.0); Macrocytosis Slight; Mean Platelet Volume 10.5; Monocytes # (A) 0.3 k/uL (0-1.0); Monocytes % (A) 5 %; Neutrophils # (A) 3.6 k/uL (1.3-7.7); Neutrophils % (A) 63 %; Platelet Count 126 k/uL (150-450); RDW 13.4 % (11.5-15.5); WBC 5.7 k/uL (3.8-10.6)
[2024-04-21] MEDS: POTASSIUM CHLORIDE 10 MEQ in WATER FOR INJECTION 1 100ML.BAG IVPB SCH (11:10)
[2024-04-21] MEDS ORDERED: HYDROmorphone (PF) 1 MG/ML ONE (11:45)
[2024-04-21] MEDS ORDERED: MIDAZOLAM 2 MG/2 ML VIAL ONE (11:45)
[2024-04-21] MEDS ORDERED: GLYCOPYRROLATE 0.2 MG/ML 2 ML VIAL ONE (11:45)
[2024-04-21] MEDS ORDERED: PROPOFOL 10 MG/ML 20 ML VIAL IV ONE (11:45)
[2024-04-21] MEDS ORDERED: ONDANSETRON 4 MG/2 ML VIAL ONE (11:45)
[2024-04-21] MEDS ORDERED: PHENYLEPHRINE 10 MG/ML VIAL ONE (11:45)
[2024-04-21] MEDS ORDERED: SUCCINYLCHOLINE CHLORIDE 200 MG/10 ML VIAL IV ONE (11:45)
[2024-04-21] MEDS ORDERED: LIDOCAINE 1% INJ 10MG/ML (20 ML MDV) ONE (11:45)
[2024-04-21] MEDS ORDERED: NEOSTIGMINE 1 MG/ML 10 ML VIAL ONE (11:45)
[2024-04-21] MEDS ORDERED: TRANEXAMIC 1,000 MG/100ML-NACL PREMIX BAG ONE (11:45)
[2024-04-21] MEDS ORDERED: fentaNYL (PF) 50 MCG/ML 2 ML AMP ONE (11:45)
[2024-04-21] MEDS ORDERED: ROCURONIUM 10 MG/ML (5 ML VIAL) IV ONE (11:45)
[2024-04-21] MEDS: ceFAZolin 1,000 MG in SODIUM CHLORIDE 0.9% 1,000 ML IRRIGATION ONE (11:48)
[2024-04-21] MEDS: LACTATED RINGERS 1,000 ML IV ONE (11:48)
--- NOTE | 2024-04-21 12:49 | P.OP ---
Date of Procedure: 04/21/24 Preoperative Diagnosis: Closed 4 part intratrochanteric fracture left hip Postoperative Diagnosis: Closed 4 part intratrochanteric fracture left hip Procedure(s) Performed: Close reduction and intramedullary nailing left hip Implants: [employer] Intertan nail 125, 11.5 mm x 18 cm. [employer] Intertan integrated-interlocking lag screw, 85 mm lag screw, 80 mm compression screw. [employer] L-P screw, 5.0 mm x 30 mm. Anesthesia: GETA Surgeon: Henrik [facility] Consultant #1: Brittany Rapp Estimated Blood Loss (ml): 100 Pathology: none sent Condition: stable Disposition: PACU Indications for Procedure: This is a 53-year-old female that sustained a ground-level fall at home. X-rays demonstrated a closed four-part intertrochanteric fracture of her left hip. After discussing the surgical nonsurgical treatment options with her at length, she wishes to proceed with a close reduction and intramedullary nailing of her left hip. Informed consent was obtained. Operative Findings: The operative findings are consistent with a four-part intertrochanteric fracture of the left hip Description of Procedure: The patient was seen in the preoperative area, consent was reviewed, and the operative site was marked with a skin marker. The surgical procedure was discussed at length with both the patient and the family at the bedside. All questions were answered to the best of my ability. The patient was brought to the operating room and placed on the fracture table. Anesthesia was administered by the anesthesia department. 2 g of Ancef were administered intravenously. The patient was placed supine on the fracture table with the fractured extremity in traction boot. The other extremity was placed in a well leg mckinney and the bony prominences were well padded. A universal timeout was then performed which confirmed the patient's name, surgical site, ALLERGIES, and consent. Fracture reduction was performed with a traction and abduction maneuver which was confirmed with fluoroscopy, both AP and lateral views.. After reduction was performed, the extremity was then prepped with ChloraPrep solution and draped in the usual sterile fashion. Utilizing fluoroscopy to identify the tip of the greater trochanter, a 3 cm longitudinal incision was made just proximal to the greater trochanter. Incision was carried through the fascia to the tip of the greater trochanter. Utilizing a curved awl, the entry point was created at the tip of the greater trochanter and centralized in the AP and lateral planes. These locations were confirmed by fluoroscopy. A guidewire was then inserted down the medullary canal. Sequentially reaming of the femur was performed to 13 mm distally and 17 mm proximally with the channel reamer. After reaming, appropriate size nail was inserted over the guidewire. The nail was inserted to the appropriate depth and the guidewire was removed. Placement of the jhoan was confirmed with both AP and lateral fluoroscopic views. The lag screw drill sleeve was placed in the jig and a small skin incision was made on the lateral aspect of the leg and the lag screw drill sleeve was locked into the guide. The 3.2 mm guide pin sleeve was inserted through the lag screw drill sleeve down to bone. A 3.2 mm distally threaded guidewire was inserted through the guide pin sleeve. The guidewire was inserted in the desired position in the femoral head, both anterior and posterior. The lag screw length cage was inserted over the guidepin to the back of the lag screw drill sleeve. Lag screw length was then measured from the cage. Next, the 7.0 mm compression screw starter drill was inserted in the lag screw drill sleeve beneath the guidepin. The compression screw starter drill was advanced under power until it abutted the back and of the lag screw drill sleeve. The 7.0 mm compression screw drill was inserted through the lag screw drill sleeve into the hole created by the compression screw starter drill. This was advanced under fluoroscopy to a depth 5 mm less and the measurement taken for the guidepin. The compression screw drill was removed and the antirotation bar was inserted into the same hole. The 3.2 mm guide pin sleeve was then removed from the drill guide. The lag screw drill was then inserted to a depth that was measured by the lag screw gauge. This was done under fluoroscopy. The lag screw was inserted over the guidewire to the appropriate depth using fluoroscopy. Traction was then released. The antirotation bar was then removed and the compression screw was advanced through the lag screw drill sleeve beneath the lag screw. This was advanced to the appropriate compression was achieved. The proximal drill guide was then removed and the distal drill guide was then inserted in the jig. Skin incision was made down to bone and the distal drill guide was then placed. Distal hole was then drilled with a 4.0 mm drill and measured to the appropriate depth. Distal screw was then placed. The entire assembly was then removed and final fluoroscopic x-rays were obtained. The wounds were then irrigated copiously with saline solution. Fascia was closed with 0-Vicryl. Subcutaneous tissues were closed with 2-0 Vicryl and the skin was closed with tim. Sterile dressings were applied. The patient was transported to the recovery room in stable condition. The hearing aid assistant MATTHEW Hanna was required due the complexity of surgery the need for skilled surgical instrument repair specialist for positioning draping retraction and fracture reduction.
[2024-04-21] MEDS ORDERED: HYDROmorphone 1 MG/ML 1 ML SYRINGE IVP PRN (13:08)
[2024-04-21] MEDS ORDERED: HYDROmorphone 0.5 MG/0.5 ML SYRINGE IVP PRN ×2 (13:08)
[2024-04-21] MEDS ORDERED: NALOXONE 0.4 MG/ML 1 ML VIAL IV PRN (13:08)
[2024-04-21] MEDS ORDERED: HYDROcodone/APAP 5-325MG 1 EACH TAB PO PRN (13:11)
[2024-04-21] MEDS: droPERidol 5 MG/2 ML VIAL IVP ONE (13:32)
--- NOTE | 2024-04-21 14:32 | XR ---
EXAMINATION TYPE: XR Hip Limited LT DATE OF EXAM: 04/21/2024 2:21 PM CLINICAL INDICATION: Female, 53 years old with history of Status post hip surgery, assess surgical al ignment; [facility] COMPARISON: Same day. TECHNIQUE: XR Hip Limited LT; hip was examined in the frontal and lateral projections and a AP pelvis . FINDINGS: Post fixation changes, hardware is intact, alignment is appropriate. Similar appearing frac ture with displacement of the lesser trochanter. Postoperative changes of the soft tissues with subcu taneous gas. IMPRESSION: Hip fixation changes with hardware intact and in appropriate alignment.
[2024-04-21] MEDS: SODIUM CHLORIDE 0.9% 1,000 ML IV SCH (15:32)
[2024-04-21] MEDS: ONDANSETRON 4 MG/2 ML VIAL IVP PRN (15:59)
[2024-04-21] MEDS: SENNOSIDES-DOCUSATE SODIUM 1 EACH TAB PO SCH (20:15)
[2024-04-21] MEDS: BACLOFEN 10 MG TAB PO PRN (20:15)
--- NOTE | 2024-04-22 05:33 | P.PN ---
Subjective Progress Note Date: 04/21/24 - Reason for Consult Preoperative clearance - History of Present Illness 53-year-old female had a mechanical fall and found to have intertrochanteric fracture on the left femur. Patient is bit hyponatremic patient denied any chest pain nausea vomiting fever chills shortness of breath denied any history of coronary artery disease. Patient denied any syncopal episode. 04/21/2024 Patient is seen and evaluated in follow-up currently n.p.o. and awaiting surgical intervention for left hip fracture with orthopedics today. Hemoglobin noted to be slightly lower recommend repeat CBC and transfuse if 7 or less. Will follow-up with repeat labs and also basic metabolic panel and recommend replacing electrolytes per protocol. Will await official orthopedic report Review of systems: Constitutional: No reports of fatigue, fever, or chills Cardiovascular: No reports of chest pain or palpitations Respiratory: No reports of shortness of breath or cough GI: No reports of nausea, vomiting, or diarrhea : No reports of dysuria or retention Neurovascular: reports of weakness and left hip pain All medications have been reviewed PHYSICAL EXAMINATION: GENERAL: The patient is alert and oriented x3, not in any acute distress. Well developed, well nourished. HEENT: Pupils are round and equally reacting to light. EOMI. No scleral icterus. No conjunctival pallor. Normocephalic, atraumatic. No pharyngeal erythema. No thyromegaly. CARDIOVASCULAR: S1 and S2 present. No murmurs, rubs, or gallops. PULMONARY: Chest is clear to auscultation, no wheezing or crackles. ABDOMEN: Soft, nontender, nondistended, normoactive bowel sounds. No palpable organomegaly. MUSCULOSKELETAL: Deferred to orthopedic surgery EXTREMITIES: No cyanosis, clubbing, or pedal edema. NEUROLOGICAL: Gross neurological examination did not reveal any focal deficits. Diffusely weak SKIN: No rashes. Assessment and plan -Left femoral intertrochanteric fracture: Patient is low operative risk for surgery. Scheduled for surgery today 04/21/2024 -Hypovolemic hyponatremia patient sodium improving on IV fluids and will lorraine nue -Hypothyroidism, resume levothyroxine -Hypertension elevated blood pressure secondary to pain, patient will be resumed on home medications will monitor blood pressure closely. Monitor later today for any postop hypotension and recommend holding blood pressure medication if systolic is less than 110 GI prophylaxis DVT prophylaxis: As per primary service Full code Plan: Patient undergoing surgical intervention with orthopedics today for left femoral IT fracture and will await official report Patient will need PT/OT therapy and eval for possible ECF on discharge Home medications reviewed and resumed as appropriate and will adjust accordingly Recommend follow-up labs in the morning and monitoring CBC. Transfuse if 7 or less Thank you kindly for this consultation we will continue to follow with orthopedics during hospitalization. The impression and plan of care has been dictated by Chayito Edmond, Nurse Practitioner as directed. Dr. Anisha MD I have performed a history and examination and MDM of this patient, discussed the same with the dictator, and agree with the dictator's assessment and plan as written ,documented as a scribe. Based on total visit time, I have performed more than 50% of the visit. Objective - Vital Signs Vital signs: Vital Signs Temp 98.6 F 04/21/24 07:18 Pulse 93 04/21/24 07:18 Resp 16 04/21/24 07:18 BP 123/66 04/21/24 07:18 Pulse Ox 98 04/21/24 07:18 FiO2 Intake & Output 04/20/24 04/21/24 04/21/24 18:59 06:59 18:59 Output Total 400 1000 Balance -400 -1000 Weight 58.967 kg 58.967 kg Output: Urine 400 1000 Uretheral (Hilario) 400 Other: Voiding Method Indwelling Catheter - Labs CBC & Chem 7: 04/21/24 09:50 04/21/24 05:09 Labs: Abnormal Lab Results - Last 24 Hours (Table) 04/20/24 04/20/24 04/21/24 Range/Units 10:06 10:06 05:09 RBC 2.77 L 2.08 L (3.80-5.40) m/uL Hgb 9.6 L 7.2 L (11.4-16.0) gm/dL Hct 29.1 L 21.0 L (34.0-46.0) % MCV 105.4 H 101.0 H (80.0-100.0) fL MCH 34.6 H (27.0-32.0) pg Plt Count 108 L (140-440) X 10*3/uL MPV 12.6 H (9.5-12.2) FL Sodium 133 L (137-145) mmol/L Potassium (3.5-5.5) mmol/L Carbon Dioxide 10 L (22-30) mmol/L Anion Gap (4.00-12.00) mmol/L BUN/Creatinine Ratio (12.00-20.00) Ratio AST 65 H (14-36) U/L ALT 70 H (4-34) U/L Alkaline Phosphatase 197 H (38-126) U/L Creatine Kinase 139 H (30-135) U/L 04/21/24 Range/Units 05:09 RBC (3.80-5.40) m/uL Hgb (11.4-16.0) gm/dL Hct (34.0-46.0) % MCV (80.0-100.0) fL MCH (27.0-32.0) pg Plt Count (140-440) X 10*3/uL MPV (9.5-12.2) FL Sodium (137-145) mmol/L Potassium 3.3 L (3.5-5.5) mmol/L Carbon Dioxide 15.1 L (22-30) mmol/L Anion Gap 13.90 H (4.00-12.00) mmol/L BUN/Creatinine Ratio 21.50 H (12.00-20.00) Ratio AST (14-36) U/L ALT (4-34) U/L Alkaline Phosphatase (38-126) U/L Creatine Kinase (30-135) U/L
[2024-04-22] MEDS: RIVAROXABAN 10 MG TAB PO SCH (08:47)
[2024-04-22 10:49] LABS: ALT 31 U/L (8-44); AST 33 U/L (13-35); Albumin 3.4 g/dL (3.8-4.9); Alkaline Phosphatase 160 U/L (41-126); Blood Urea Nitrogen 8.7 mg/dL (9.0-27.0); Calcium 8.8 mg/dL (8.7-10.3); Carbon Dioxide 15.1 mmol/L (21.6-31.8); Chloride 107 mmol/L (96-109); Glucose 83 mg/dL (70-110); Magnesium 1.3 mg/dL (1.5-2.4); Potassium 3.8 mmol/L (3.5-5.5); Sodium 136 mmol/L (135-145); Total Bilirubin 0.3 mg/dL (0.3-1.2); Total Protein 5.4 g/dL (6.2-8.2)
--- NOTE | 2024-04-22 11:21 | P.PN ---
Subjective Progress Note Date: 04/22/24 This is a 53-year-old female who is status post closed reduction and intramedullary nailing of the left hip. This is postoperative day #1 and patient is seen and evaluated at bedside today. Patient states that the left hip is quite sore and she has not been out of bed yet with physical therapy. Objective - Vital Signs Vital signs: Vital Signs Temp 98.6 F 04/22/24 07:01 Pulse 102 H 04/22/24 07:01 Resp 18 04/22/24 07:01 BP 110/66 04/22/24 07:01 Pulse Ox 97 04/22/24 07:01 FiO2 Intake & Output 04/21/24 04/22/24 04/22/24 18:59 06:59 18:59 Intake Total 1201 Output Total 1250 1350 Balance -49 -1350 Intake: IV 1201 Output: Urine 1150 1350 Estimated Blood Loss 100 Other: Voiding Method Indwelling Catheter - Exam Vital signs are stable. Patient is in no acute distress and is alert and oriented 3. Calf is soft and nontender to palpation. Dressing is clean, dry, and intact. Patient has full foot and ankle motion without pain or difficulty. Sensation intact. Neurovascular status and circulatory status are intact. - Labs CBC & Chem 7: 04/21/24 09:50 04/22/24 06:37 Labs: Abnormal Lab Results - Last 24 Hours (Table) 04/22/24 Range/Units 06:37 Carbon Dioxide 15.1 L (21.6-31.8) mmol/L Anion Gap 13.90 H (4.00-12.00) mmol/L BUN 8.7 L (9.0-27.0) mg/dL Magnesium 1.3 L (1.5-2.4) mg/dL Alkaline Phosphatase 160 H (41-126) U/L Total Protein 5.4 L (6.2-8.2) g/dL Albumin 3.4 L (3.8-4.9) g/dL Assessment and Plan (1) Intertrochanteric fracture of left hip Current Visit: Yes Status: Acute Code(s): S72.142A - DISPLACED INTERTROCHANTERIC FRACTURE OF LEFT FEMUR, INIT SNOMED Code(s): 808102400 (2) Intertrochanteric fracture Current Visit: Yes Status: Acute Code(s): S72.143A - DISPLACED INTERTROCHANTERIC FRACTURE OF UNSP FEMUR, INIT SNOMED Code(s): 449413106 Plan: Continue routine postop care and pain control. Continue anticoagulation with Xarelto. Toe-touch weightbearing to the left lower extremity with a walker. Leave dressing in place for 7 days. Appreciate input from internal medicine. Anticipate discharge to ECF in the next 24-48 hours.
[2024-04-22 12:01] LABS: Basophils # (A) 0.03 X 10*3/uL (0.00-0.10); Basophils % (A) 0.5 %; Eosinophils # (A) 0.08 X 10*3/uL (0.04-0.35); Eosinophils % (A) 1.2 %; HGB 6.5 g/dL (12.0-15.0); Lymphocytes % (A) 33.2 %; MCHC 32.5 g/dL (32.0-37.0); MCV 104.7 FL (80.0-97.0); Mean Platelet Volume 13.1 FL (9.5-12.2); Monocytes # (A) 0.61 X 10*3/uL (0.20-1.00); Monocytes % (A) 9.2 %; NRBC Per 100 WBC 0 X 10*3/uL (0.00-0.01); Neutrophils # (A) 3.68 X 10*3/uL (1.80-7.70); Neutrophils % (A) 55.4 %; Platelet Count 121 X 10*3/uL (140-440); RBC 1.91 X 10*6/uL (4.10-5.20); RDW 12.8 % (11.5-14.5); WBC 6.63 X 10*3/uL (4.50-10.00)
[2024-04-22] MEDS ORDERED: Magnesium Replacement Protocol 1 EACH MISC MISCELLANE PRN (13:08)
--- NOTE | 2024-04-22 13:15 | XR ---
EXAMINATION TYPE: XR foot limited RT DATE OF EXAM: 04/22/2024 12:40 PM INDICATION: Patient age:Female; 53 years old; Reason for study: foot and toe pain, frequent toe fractures; [facility]. COMPARISON: None TECHNIQUE: The right foot was examined in the AP and lateral projections. FINDINGS: Diffuse bone demineralization which limits evaluation. No evidence of any acute osseous pathology. N o evidence of soft tissue swelling. Mild soft tissue swelling of the dorsal distal foot. There is fabiano e sclerosis involving the distal third and fourth metatarsal metaphysis from possible prior injury. IMPRESSION: 1. No evidence of acute fracture. Diffuse bone demineralization limits evaluation. If there is lorraine nued clinical concern, consider further evaluation with CT. 2. Mild soft tissue swelling over the dorsal distal foot.
[2024-04-22] MEDS: MAGNESIUM SULFATE-D5W PMX 1 GM in DEXTROSE/WATER 1 100ML.BAG IVPB SCH (13:37)
[2024-04-22] MEDS: HYDROcodone/APAP 5-325MG 1 EACH TAB PO PRN (16:19)
--- NOTE | 2024-04-23 05:54 | P.PN ---
Subjective Progress Note Date: 04/22/24 - Reason for Consult Preoperative clearance - History of Present Illness 53-year-old female had a mechanical fall and found to have intertrochanteric fracture on the left femur. Patient is bit hyponatremic patient denied any chest pain nausea vomiting fever chills shortness of breath denied any history of coronary artery disease. Patient denied any syncopal episode. 04/21/2024 Patient is seen and evaluated in follow-up currently n.p.o. and awaiting surgical intervention for left hip fracture with orthopedics today. Hemoglobin noted to be slightly lower recommend repeat CBC and transfuse if 7 or less. Will follow-up with repeat labs and also basic metabolic panel and recommend replacing electrolytes per protocol. Will await official orthopedic report 04/22/2024 Patient seen and evaluated in follow-up today status post closed reduction and left IM nailing postop day 1. Hemoglobin noted to be 6.5 today and will transfuse a unit of blood. Patient has no active bleeding noted and may be partially contributed to hemodilution. Will follow-up with repeat labs and monitor closely. Patient is reporting some severe left hip discomfort and difficulty sitting up in the chair and ambulation and rehab has been recommended by physical therapy. Patient is agreeable and discussing with case management regarding discharge planning. Patient is reporting some right foot pain and reports has been having ongoing pain in the toes with frequent fractures. Daughter at the bedside reports she has been attempting to go to physical therapy outpatient for her weakness and continued right knee pain. Review of systems: Constitutional: No reports of fatigue, fever, or chills Cardiovascular: No reports of chest pain or palpitations Respiratory: No reports of shortness of breath or cough GI: No reports of nausea, vomiting, or diarrhea : No reports of dysuria or retention Neurovascular: reports of weakness and left hip pain as well as right foot pain All medications have been reviewed PHYSICAL EXAMINATION: GENERAL: The patient is alert and oriented x3, not in any acute distress. Well developed, thin built, elderly appearing HEENT: Pupils are round and equally reacting to light. EOMI. No scleral icterus. No conjunctival pallor. Normocephalic, atraumatic. No pharyngeal erythema. No thyromegaly. CARDIOVASCULAR: S1 and S2 present. No murmurs, rubs, or gallops. PULMONARY: Chest is clear to auscultation, no wheezing or crackles. ABDOMEN: Soft, thin nontender, nondistended, normoactive bowel sounds. No palpable organomegaly. MUSCULOSKELETAL: Deferred to orthopedic surgery EXTREMITIES: No cyanosis, clubbing, or pedal edema. Right foot pain near the toes with no obvious deformity, faint swelling noted dorsally NEUROLOGICAL: Gross neurological examination did not reveal any focal deficits. Diffusely weak SKIN: No rashes. Assessment and plan -Left femoral intertrochanteric fracture: Status post closed reduction and left IM nailing, postop day 1 -Hypovolemic hyponatremia patient sodium improved and is within normal limits. Discontinue the IV fluids -Right foot pain, ruled out fractures, soft tissue swelling noted on imaging -Acute blood loss anemia, secondary to recent surgery and possible component of hemodilution -Hypothyroidism, resume levothyroxine -Hypertension elevated blood pressure secondary to pain, patient will be resumed on home medications will monitor blood pressure closely. Monitor later today for any postop hypotension and recommend holding blood pressure medication if systolic is less than 110 GI prophylaxis DVT prophylaxis: As per primary service Full code Plan: Patient underwent left hip closed reduction with IM nailing, postop day 1 Hemoglobin was noted to be 6.5 and will transfuse a unit of PRBC. No active bleeding noted Evaluated by PT/OT therapy and recommending rehab on discharge. Patient is agreeable and case management following Will obtain an x-ray of the right foot as patient is reporting some pain and swelling and has been having difficulty with fractures of the toes and has been ongoing working with physical therapy in the outpatient setting for her right knee pain. X-ray imaging shows some soft tissue swelling with no fractures, recommend compression stockings and elevating lower extremities while at rest. Home medications reviewed and resumed as appropriate and will adjust accordingly Recommend follow-up labs in the morning and monitoring CBC. Transfuse if 7 or less Thank you kindly for this consultation we will continue to follow with orthopedics during hospitalization. The impression and plan of care has been dictated by Chayito Edmond, Nurse Practitioner as directed. Dr. Anisha MD I have performed a history and examination and MDM of this patient, discussed the same with the dictator, and agree with the dictator's assessment and plan as written ,documented as a scribe. Based on total visit time, I have performed more than 50% of the visit. Objective - Vital Signs Vital signs: Vital Signs Temp 98.2 F 04/22/24 12:28 Pulse 107 H 04/22/24 12:28 Resp 18 04/22/24 12:28 BP 109/71 04/22/24 12:28 Pulse Ox 97 04/22/24 12:28 FiO2 Intake & Output 04/21/24 04/22/24 04/22/24 18:59 06:59 18:59 Intake Total 1201 Output Total 1250 1350 550 Balance -49 -1350 -550 Intake: IV 1201 Output: Urine 1150 1350 550 Estimated Blood Loss 100 Other: Voiding Method Indwelling Catheter - Labs CBC & Chem 7: 04/22/24 06:37 04/22/24 06:37 Labs: Abnormal Lab Results - Last 24 Hours (Table) 04/21/24 04/22/24 04/22/24 Range/Units 09:45 06:37 06:37 RBC 1.91 L (4.10-5.20) X 10*6/uL Hgb 6.5 A* (12.0-15.0) g/dL Hct 20.0 L (37.2-46.3) % MCV 104.7 H (80.0-97.0) FL MCH 34.0 H (27.0-32.0) pg Plt Count 121 L (140-440) X 10*3/uL MPV 13.1 H (9.5-12.2) FL Carbon Dioxide 15.1 L (21.6-31.8) mmol/L Anion Gap 13.90 H (4.00-12.00) mmol/L BUN 8.7 L (9.0-27.0) mg/dL Magnesium 1.3 L (1.5-2.4) mg/dL Alkaline Phosphatase 160 H (41-126) U/L Total Protein 5.4 L (6.2-8.2) g/dL Albumin 3.4 L (3.8-4.9) g/dL Crossmatch See Detail
--- NOTE | 2024-04-23 09:31 | P.PN ---
Subjective Progress Note Date: 04/23/24 This is a 53-year-old female who is status post closed reduction and intramedullary nailing of the left hip. This is postoperative day #2 and patient is seen and evaluated at bedside today. Patient states that she was able to sit in a chair yesterday, but she still has quite a bit of soreness in the left thigh. Patient states that she has some pain in the right foot upon standing. Patient states that prior to her hip injury she was wearing a postop shoe for the right foot which helped alleviate her pain. Patient denies any new injury or symptoms regarding the right foot. Objective - Vital Signs Vital signs: Vital Signs Temp 97.9 F 04/23/24 07:53 Pulse 101 H 04/23/24 07:53 Resp 17 04/23/24 07:53 BP 127/75 04/23/24 07:53 Pulse Ox 98 04/23/24 07:53 FiO2 Intake & Output 04/22/24 04/23/24 04/23/24 18:59 06:59 18:59 Intake Total 310 Output Total 1260 1275 Balance -950 -1275 Intake: Blood Product 310 Rc Pheresis 2 As3 Unit 310 [id number] Output: Urine 1260 1275 Other: Voiding Method Indwelling Catheter - Exam Vital signs are stable. Patient is in no acute distress and is alert and oriented 3. Calf is soft and nontender to palpation. Dressing is clean, dry, and intact. Patient has full foot and ankle motion without pain or difficulty. Sensation intact. Neurovascular status and circulatory status are intact. There is no significant swelling or erythema of the right foot. Patient has good range of motion of the right foot and ankle. The right lower extremity is warm and well perfused. - Labs CBC & Chem 7: 04/22/24 06:37 04/22/24 06:37 Labs: Abnormal Lab Results - Last 24 Hours (Table) 04/21/24 04/22/24 04/22/24 Range/Units 09:45 06:37 06:37 RBC 1.91 L (4.10-5.20) X 10*6/uL Hgb 6.5 A* (12.0-15.0) g/dL Hct 20.0 L (37.2-46.3) % MCV 104.7 H (80.0-97.0) FL MCH 34.0 H (27.0-32.0) pg Plt Count 121 L (140-440) X 10*3/uL MPV 13.1 H (9.5-12.2) FL Carbon Dioxide 15.1 L (21.6-31.8) mmol/L Anion Gap 13.90 H (4.00-12.00) mmol/L BUN 8.7 L (9.0-27.0) mg/dL Magnesium 1.3 L (1.5-2.4) mg/dL Alkaline Phosphatase 160 H (41-126) U/L Total Protein 5.4 L (6.2-8.2) g/dL Albumin 3.4 L (3.8-4.9) g/dL Crossmatch See Detail Assessment and Plan (1) Intertrochanteric fracture of left hip Current Visit: Yes Status: Acute Code(s): S72.142A - DISPLACED INTERTROCHANTERIC FRACTURE OF LEFT FEMUR, INIT SNOMED Code(s): 242615461 (2) Intertrochanteric fracture Current Visit: Yes Status: Acute Code(s): S72.143A - DISPLACED INTERTROCHANTERIC FRACTURE OF UNSP FEMUR, INIT SNOMED Code(s): 021019184 Plan: Continue routine postop care and pain control. Continue anticoagulation with Xarelto. Toe-touch weightbearing to the left lower extremity with a walker. Leave dressing in place for 7 days. Appreciate input from internal medicine. An x-ray report of the right foot dated 04/22/2024 reveals: 1. No evidence of acute fracture. Diffuse bone demineralization limits evaluation. If there is continued clinical concern, consider further evaluation with CT. 2. Mild soft tissue swelling over the dorsal distal foot. Will obtain a postop shoe for the right foot. Patient may weight-bear as tolerated to the right foot with her postop shoe. Anticipate discharge to ECF in the next 24-48 hours.
[2024-04-23 10:40] LABS: Basophils # (A) 0.04 X 10*3/uL (0.00-0.10); Basophils % (A) 0.6 %; Eosinophils # (A) 0.18 X 10*3/uL (0.04-0.35); Eosinophils % (A) 2.9 %; HCT 23.9 % (37.2-46.3); HGB 7.8 g/dL (12.0-15.0); Lymphocytes # (A) 2.05 X 10*3/uL (0.90-5.00); Lymphocytes % (A) 33.2 %; MCH 33.5 pg (27.0-32.0); MCHC 32.6 g/dL (32.0-37.0); MCV 102.6 FL (80.0-97.0); Mean Platelet Volume 12.7 FL (9.5-12.2); Monocytes # (A) 0.45 X 10*3/uL (0.20-1.00); Monocytes % (A) 7.3 %; NRBC Per 100 WBC 0 X 10*3/uL (0.00-0.01); Neutrophils # (A) 3.42 X 10*3/uL (1.80-7.70); Neutrophils % (A) 55.5 %; Platelet Count 133 X 10*3/uL (140-440); RBC 2.33 X 10*6/uL (4.10-5.20); RDW 16.5 % (11.5-14.5); WBC 6.17 X 10*3/uL (4.50-10.00)
[2024-04-24] MEDS ORDERED: Magnesium Replacement Protocol 1 EACH MISC MISCELLANE PRN (05:04)
[2024-04-24] MEDS ORDERED: ACETAMINOPHEN TAB 325 MG TAB PO PRN (05:43)
--- NOTE | 2024-04-24 05:52 | P.PN ---
Subjective Progress Note Date: 04/23/24 - Reason for Consult Preoperative clearance - History of Present Illness 53-year-old female had a mechanical fall and found to have intertrochanteric fracture on the left femur. Patient is bit hyponatremic patient denied any chest pain nausea vomiting fever chills shortness of breath denied any history of coronary artery disease. Patient denied any syncopal episode. 04/21/2024 Patient is seen and evaluated in follow-up currently n.p.o. and awaiting surgical intervention for left hip fracture with orthopedics today. Hemoglobin noted to be slightly lower recommend repeat CBC and transfuse if 7 or less. Will follow-up with repeat labs and also basic metabolic panel and recommend replacing electrolytes per protocol. Will await official orthopedic report 04/22/2024 Patient seen and evaluated in follow-up today status post closed reduction and left IM nailing postop day 1. Hemoglobin noted to be 6.5 today and will transfuse a unit of blood. Patient has no active bleeding noted and may be partially contributed to hemodilution. Will follow-up with repeat labs and monitor closely. Patient is reporting some severe left hip discomfort and difficulty sitting up in the chair and ambulation and rehab has been recommended by physical therapy. Patient is agreeable and discussing with case management regarding discharge planning. Patient is reporting some right foot pain and reports has been having ongoing pain in the toes with frequent fractures. Daughter at the bedside reports she has been attempting to go to physical therapy outpatient for her weakness and continued right knee pain. 04/23/2024 Patient is seen in follow-up today continues to report left hip and leg discomfort along with right foot pain and swelling. X-ray was obtained yesterday showing some soft tissue swelling with no acute fractures noted. Orthopedics recommending a postop shoe to the right foot. Discussed with the patient about possible compression stockings for the swelling although patient reports cannot tolerate and will use Stan wraps to the right lower extremity and encourage the patient to continue to elevate while at rest. Patient continues to be extremely anxious about the pain and continues to require IV pain medication. Case management following arranging for discharge planning as p atient will be going to [facility]. Review of systems: Constitutional: No reports of fatigue, fever, or chills Cardiovascular: No reports of chest pain or palpitations Respiratory: No reports of shortness of breath or cough GI: No reports of nausea, vomiting, or diarrhea : No reports of dysuria or retention Neurovascular: reports of weakness and inability to ambulate with continued left hip pain as well as right foot pain All medications have been reviewed PHYSICAL EXAMINATION: GENERAL: The patient is alert and oriented x3, mildly anxious, well developed, thin built, elderly appearing HEENT: Pupils are round and equally reacting to light. EOMI. No scleral icterus. No conjunctival pallor. Normocephalic, atraumatic. No pharyngeal erythema. No thyromegaly. CARDIOVASCULAR: S1 and S2 present. No murmurs, rubs, or gallops. PULMONARY: Chest is clear to auscultation, no wheezing or crackles. ABDOMEN: Soft, thin nontender, nondistended, normoactive bowel sounds. No palpable organomegaly. MUSCULOSKELETAL: Deferred to orthopedic surgery EXTREMITIES: No cyanosis, clubbing, or pedal edema. Right foot pain near the toes with no obvious deformity, faint swelling noted dorsally NEUROLOGICAL: Gross neurological examination did not reveal any focal deficits. Diffusely weak SKIN: No rashes. Assessment and plan -Left femoral intertrochanteric fracture: Status post closed reduction and left IM nailing, postop day 2 -Hypovolemic hyponatremia patient sodium improved and is within normal limits. Discontinue the IV fluids -Right foot pain, ruled out fractures, soft tissue swelling noted on imaging -Acute blood loss anemia, secondary to recent surgery and possible component of hemodilution, improved status post 1 unit of PRBC -Hypothyroidism, resume levothyroxine -Hypertension elevated blood pressure secondary to pain, patient will be resumed on home medications will monitor blood pressure closely. recommend holding blood pressure medication if systolic is less than 110 GI prophylaxis DVT prophylaxis: As per primary service Full code Plan: Patient underwent left hip closed reduction with IM nailing, postop day 2 Hemoglobin was noted to be 6.5 yesterday and was given a unit of PRBC and hemoglobin is improved above 8 with no active bleeding noted Evaluated by PT/OT therapy and recommending rehab on discharge. Patient is agreeable and case management following x-ray of the right foot with no acute fractures noted noted some soft tissue swelling recommend compression stockings or Stan wraps. Patient refuses compression stockings reporting they are painful. Patient has been instructed to elevate the right lower extremity while at rest. Postop shoe being ordered per orthopedics as patient reports she had 1 previously which helped in walking as she has been having ongoing issues with broken toes and a bad right knee and has been going to physical therapy in the outpatient setting Home medications reviewed and resumed as appropriate and will adjust accordingly Encouraged the patient to avoid IV narcotics as patient will be going to ECF. Encouraged incentive spirometer use at least 10 times every hour while awake. Thank you kindly for this consultation we will continue to follow with orthopedics during hospitalization. The impression and plan of care has been dictated by Chayito Edmond, Nurse Practitioner as directed. Dr. Anisha MD I have performed a history and examination and MDM of this patient, discussed the same with the dictator, and agree with the dictator's assessment and plan as written ,documented as a scribe. Based on total visit time, I have performed more than 50% of the visit. Objective - Vital Signs Vital signs: Vital Signs Temp 98.6 F 04/24/24 01:38 Pulse 104 H 04/24/24 01:38 Resp 18 04/24/24 01:38 BP 131/83 04/24/24 01:38 Pulse Ox 99 04/24/24 01:38 FiO2 Intake & Output 04/23/24 04/23/24 04/24/24 06:59 18:59 06:59 Output Total 1275 850 Balance -1275 -850 Output: Urine 1275 850 Other: Voiding Method Indwelling Catheter Indwelling Catheter Indwelling Catheter - Labs CBC & Chem 7: 04/23/24 06:26 04/22/24 06:37 Labs: Abnormal Lab Results - Last 24 Hours (Table) 04/23/24 Range/Units 06:26 RBC 2.33 L (4.10-5.20) X 10*6/uL Hgb 7.8 L (12.0-15.0) g/dL Hct 23.9 L (37.2-46.3) % MCV 102.6 H (80.0-97.0) FL MCH 33.5 H (27.0-32.0) pg RDW 16.5 H (11.5-14.5) % Plt Count 133 L (140-440) X 10*3/uL MPV 12.7 H (9.5-12.2) FL
[2024-04-24] MEDS: MAGNESIUM SULFATE-D5W PMX 1 GM in DEXTROSE/WATER 1 100ML.BAG IVPB ONE (06:11)
[2024-04-24 08:47] LABS: Basophils # (A) 0.04 X 10*3/uL (0.00-0.10); Basophils % (A) 0.7 %; Eosinophils # (A) 0.22 X 10*3/uL (0.04-0.35); Eosinophils % (A) 4.1 %; HCT 21.7 % (37.2-46.3); HGB 7.4 g/dL (12.0-15.0); Lymphocytes % (A) 35.5 %; MCH 33.3 pg (27.0-32.0); MCHC 34.1 g/dL (32.0-37.0); MCV 97.7 FL (80.0-97.0); Mean Platelet Volume 12.2 FL (9.5-12.2); Monocytes # (A) 0.49 X 10*3/uL (0.20-1.00); Monocytes % (A) 9.2 %; NRBC Per 100 WBC 0 X 10*3/uL (0.00-0.01); Neutrophils # (A) 2.68 X 10*3/uL (1.80-7.70); Neutrophils % (A) 50.1 %; Platelet Count 169 X 10*3/uL (140-440); RBC 2.22 X 10*6/uL (4.10-5.20); RDW 16.3 % (11.5-14.5); WBC 5.35 X 10*3/uL (4.50-10.00)
--- NOTE | 2024-04-24 09:04 | P.DS ---
Providers Date of admission: 04/20/24 11:57 Expected date of discharge: 04/24/24 Attending physician: Henrik Whalen Consults: 04/20/24 13:57 Consult Physician Urgent Consulting Provider: Jinny Duque Consult Reason/Comments: surgical clearance and medical management Do you want consulting provider notified?: Yes Primary care physician: Trev Orozco Kut - Discharge Diagnosis(es) (1) Fall Current Visit: Yes Status: Acute (2) Intertrochanteric fracture Current Visit: Yes Status: Acute Hospital Course: This is a 53-year-old female who is admitted to [facility] on 04/20/2024 after falling and sustaining injury to the left hip. On exam and x-ray in the emergency department she is found to have an intertrochanteric fracture of the left hip. He is admitted to our service for surgical intervention and care. Patient is taken to surgery for close reduction and insertion of intertrochanteric nail of the left hip. The procedure was performed without complication or sequelae. The patient is doing fairly well postoperatively. Vital signs and labs are stable on postoperative day # 3. Patient is discharged to inpatient rehab in good condition. Please see med rec for accurate list of discharge medications. Patient Condition at Discharge: Stable Plan - Discharge Summary Discharge Rx Participant: No New Discharge Prescriptions: New Sennosides [Senokot] 2 tab PO DAILY PRN #60 tablet PRN Reason: Constipation Rivaroxaban [Xarelto] 10 mg PO DAILY #30 tab HYDROcodone/APAP 5-325MG [Tracy 5-325] 1 - 2 tab PO Q6HR PRN #32 tab PRN Reason: Pain No Action Loratadine 10 mg PO DAILY Ibuprofen [Motrin] 600 mg PO TID PRN PRN Reason: Pain Levothyroxine Sodium [Synthroid] 137 mcg PO DAILY Losartan [Cozaar] 50 mg PO BID LORazepam [Ativan] 0.5 mg PO BID PRN PRN Reason: Anxiety Baclofen 10 mg PO HS Discharge Medication List Ibuprofen [Motrin] 600 mg PO TID PRN 10/11/17 [History] Loratadine 10 mg PO DAILY 10/11/17 [History] Baclofen 10 mg PO HS 04/20/24 [History] LORazepam [Ativan] 0.5 mg PO BID PRN 04/20/24 [History] Levothyroxine Sodium [Synthroid] 137 mcg PO DAILY 04/20/24 [History] Losartan [Cozaar] 50 mg PO BID 04/20/24 [History] HYDROcodone/APAP 5-325MG [Tracy 5-325] 1 - 2 tab PO Q6HR PRN #32 tab 04/21/24 [Rx] Rivaroxaban [Xarelto] 10 mg PO DAILY #30 tab 04/21/24 [Rx] Sennosides [Senokot] 2 tab PO DAILY PRN #60 tablet 04/21/24 [Rx] Follow up Appointment(s)/Referral(s): Trev Disla [Primary Care Provider] - 1-2 days Henrik Whalen DO [Doctor of Osteopathic Medicine] - 2 Weeks Activity/Diet/Wound Care/Special Instructions: Toe-touch weightbearing with walker. Leave dressing intact. Dressing may be removed by home care nurse or by patient in 7 days. Then change dressing twice daily until follow up. May shower with initial dressing intact and after removal. If dressing become saturated, please remove. Elba to be removed in 10-14 days. Please take Xarelto daily for 30 days to prevent blood clots. Recommend use of compression stockings daily until follow up to help prevent swelling and blood clots. May remove at night before sleeping. Please follow-up with [facility] in 2 weeks and call with any questions or concerns, . Discharge/Stand Alone Forms: Area PCPs Discharge Disposition: TRANSFER TO SNF/ECF
[2024-04-24] MEDS: ONDANSETRON 4 MG/2 ML VIAL IVP PRN (09:11)
--- NOTE | 2024-04-24 12:56 | P.PN ---
Subjective Progress Note Date: 04/24/24 - Reason for Consult Preoperative clearance - History of Present Illness 53-year-old female had a mechanical fall and found to have intertrochanteric fracture on the left femur. Patient is bit hyponatremic patient denied any chest pain nausea vomiting fever chills shortness of breath denied any history of coronary artery disease. Patient denied any syncopal episode. 04/21/2024 Patient is seen and evaluated in follow-up currently n.p.o. and awaiting surgical intervention for left hip fracture with orthopedics today. Hemoglobin noted to be slightly lower recommend repeat CBC and transfuse if 7 or less. Will follow-up with repeat labs and also basic metabolic panel and recommend replacing electrolytes per protocol. Will await official orthopedic report 04/22/2024 Patient seen and evaluated in follow-up today status post closed reduction and left IM nailing postop day 1. Hemoglobin noted to be 6.5 today and will transfuse a unit of blood. Patient has no active bleeding noted and may be p artially contributed to hemodilution. Will follow-up with repeat labs and monitor closely. Patient is reporting some severe left hip discomfort and difficulty sitting up in the chair and ambulation and rehab has been recommended by physical therapy. Patient is agreeable and discussing with case management regarding discharge planning. Patient is reporting some right foot pain and reports has been having ongoing pain in the toes with frequent fractures. Daughter at the bedside reports she has been attempting to go to physical therapy outpatient for her weakness and continued right knee pain. 04/23/2024 Patient is seen in follow-up today continues to report left hip and leg discomfort along with right foot pain and swelling. X-ray was obtained yesterday showing some soft tissue swelling with no acute fractures noted. Orthopedics recommending a postop shoe to the right foot. Discussed with the patient about possible compression stockings for the swelling although patient reports cannot tolerate and will use Stan wraps to the right lower extremity and encourage the patient to continue to elevate while at rest. Patient continues to be extremely anxious about the pain and continues to require IV pain medication. Case management following arranging for discharge planning as pat ient will be going to [facility]. 04/24/2024 Patient is evaluated in follow-up she is postoperative day #3 left hip IM nailing. Patient reports significant discomfort out of 10 to the left hip and states that she is anxious of sitting up in the chair secondary to the pain. She will be going to [facility] for subacute rehab and if authorization is obtained she can go today. Patient continues with an Stan wrap to the right lower extremity she states that the pain and swelling is mostly because she has toes that were fractured and healed wrong and she has chronic pain there. Hemodynamically she is stable. Hemoglobin is up to 7.4 today. No signs of active bleeding at this time. Review of systems: Constitutional: No reports of fatigue, fever, or chills Cardiovascular: No reports of chest pain or palpitations Respiratory: No reports of shortness of breath or cough GI: No reports of nausea, vomiting, or diarrhea : No reports of dysuria or retention Neurovascular: reports of weakness and inability to ambulate with continued left hip pain as well as right foot pain All medications have been reviewed PHYSICAL EXAMINATION: GENERAL: The patient is alert and oriented x3, mildly anxious, well developed, thin built, elderly appearing HEENT: Pupils are round and equally reacting to light. EOMI. No scleral icterus. No conjunctival pallor. Normocephalic, atraumatic. No pharyngeal erythema. No thyromegaly. CARDIOVASCULAR: S1 and S2 present. No murmurs, rubs, or gallops. PULMONARY: Chest is clear to auscultation, no wheezing or crackles. ABDOMEN: Soft, thin nontender, nondistended, normoactive bowel sounds. No palpable organomegaly. MUSCULOSKELETAL: Deferred to orthopedic surgery EXTREMITIES: No cyanosis, clubbing, or pedal edema. Right foot pain near the toes with no obvious deformity, faint swelling noted dorsally NEUROLOGICAL: Gross neurological examination did not reveal any focal deficits. Diffusely weak SKIN: No rashes. Assessment and plan -Left femoral intertrochanteric fracture: Status post closed reduction and left IM nailing, postop day 2 -Hypovolemic hyponatremia patient sodium improved and is within normal limits. Discontinue the IV fluids -Right foot pain, ruled out fractures, soft tissue swelling noted on imaging -Acute blood loss anemia, secondary to recent surgery and possible component of hemodilution, improved status post 1 unit of PRBC -Hypothyroidism, resume levothyroxine -Hypertension elevated blood pressure secondary to pain, patient will be resumed on home medications will monitor blood pressure closely. recommend holding blood pressure medication if systolic is less than 110 GI prophylaxis DVT prophylaxis: As per primary service Full code Plan: Patient underwent left hip closed reduction with IM nailing, postop day 3 Hemoglobin was noted to be 6.5 yesterday and was given a unit of PRBC and hemoglobin is improved at 7.4 with no active bleeding noted Evaluated by PT/OT therapy and recommending rehab on discharge. Patient is agre eable and case management following x-ray of the right foot with no acute fractures noted noted some soft tissue swelling recommend compression stockings or Stan wraps. Patient refuses compression stockings reporting they are painful. Patient has been instructed to elevate the right lower extremity while at rest. Postop shoe being ordered per orthopedics as patient reports she had 1 previously which helped in walking as she has been having ongoing issues with broken toes and a bad right knee and has been going to physical therapy in the outpatient setting Home medications reviewed and resumed as appropriate and will adjust accordingly Encouraged the patient to avoid IV narcotics as patient will be going to [facility]CF. Encouraged incentive spirometer use at least 10 times every hour while awake. Thank you kindly for this consultation we will continue to follow with orthopedics during hospitalization. The impression and plan of care has been dictated by Nurse Radha Ledbetter as directed. Dr. Anisha MD I have performed a history and examination and MDM of this patient, discussed the same with the dictator, and agree with the dictator's assessment and plan as written ,documented as a scribe. Based on total visit time, I have performed more than 50% of the visit. Objective - Vital Signs Vital signs: Vital Signs Temp 98.0 F 04/24/24 08:14 Pulse 99 04/24/24 08:14 Resp 19 04/24/24 08:14 BP 123/72 04/24/24 08:14 Pulse Ox 99 04/24/24 08:14 FiO2 Intake & Output 04/23/24 04/24/24 04/24/24 18:59 06:59 18:59 Output Total 850 875 Balance -850 -875 Output: Urine 850 875 Other: Voiding Method Indwelling Catheter Indwelling Catheter - Labs CBC & Chem 7: 04/24/24 04:41 04/22/24 06:37 Labs: Abnormal Lab Results - Last 24 Hours (Table) 04/24/24 Range/Units 04:41 RBC 2.22 L (4.10-5.20) X 10*6/uL Hgb 7.4 L (12.0-15.0) g/dL Hct 21.7 L (37.2-46.3) % MCV 97.7 H (80.0-97.0) FL MCH 33.3 H (27.0-32.0) pg RDW 16.3 H (11.5-14.5) % Assessment and Plan Time with Patient: Less than 30
[2024-04-24 15:35] VITALS: BP 144/71; PULSE 107; RESP 18; TEMP 98.2
--- NOTE | 2024-05-14 10:36 | FL ---
EXAMINATION TYPE: FL guidance operating room, XR Hip Complete LT DATE OF EXAM: 04/21/2024 1:02 PM COMPARISON: Pre Operative Images if available both CT/MRI or plain film CLINICAL INDICATION: Female, 53 years old with history of ORIF Lt Hip; TECHNIQUE: FL guidance operating room, XR Hip Complete LT, multiple fluoroscopic images provided for procedure. Total fluoroscopy time: 30.1 seconds Total submitted images to PACS: 2 DAP: 0.9507 mGym2 Gycm2 uGym2 cGycm2 or equivalent. FINDINGS: Fluoroscopic images during internal fixation/arthroplasty demonstrate fixation hardware in appropriat e position. Hardware appears intact. No immediate complication identified. IMPRESSION: 1. No evidence for intraoperative complication. 2. Please see the operative/procedural note for further details. [facility], , 05/14/2024 10:33 AM
== END 2024-04-24 17:08 | DRG 481 ==
LOC: EC 09:03 → 4SSUR 11:57
PROVIDERS: ADMIT Orthopaedic Surgery; ATTEND Orthopaedic Surgery
PROC: 3E0T3BZ Introduction of Anesthetic Agent into Peripheral Nerves and Plexi, Percutaneous Approach (ICD-10-PCS; principal; 2024-04-21 07:30)
PROC: 0QS736Z Reposition Left Upper Femur with Intramedullary Internal Fixation Device, Percutaneous Approach (ICD-10-PCS; principal; 2024-04-21 07:30)
PROC: 30233N1 Transfusion of Nonautologous Red Blood Cells into Peripheral Vein, Percutaneous Approach (ICD-10-PCS; 2024-04-22)
DX: S72.142A Displaced intertrochanteric fracture of left femur, initial encounter for closed fracture (principal); D62 Acute posthemorrhagic anemia; E87.1 Hypo-osmolality and hyponatremia; I10 Essential (primary) hypertension; E03.9 Hypothyroidism, unspecified; M79.7 Fibromyalgia; W01.0XXA Fall on same level from slipping, tripping and stumbling without subsequent striking against object, initial encounter; Y92.009 Unspecified place in unspecified non-institutional (private) residence as the place of occurrence of the external cause; F17.210 Nicotine dependence, cigarettes, uncomplicated; M91.0 Juvenile osteochondrosis of pelvis; E86.1 Hypovolemia; I95.81 Postprocedural hypotension; G43.909 Migraine, unspecified, not intractable, without status migrainosus; M81.0 Age-related osteoporosis without current pathological fracture; J45.909 Unspecified asthma, uncomplicated; Z79.890 Hormone replacement therapy; Z79.899 Other long term (current) drug therapy; Z82.49 Family history of ischemic heart disease and other diseases of the circulatory system; Z87.19 Personal history of other diseases of the digestive system; Z88.2 Allergy status to sulfonamides; Z88.5 Allergy status to narcotic agent; Z88.8 Allergy status to other drugs, medicaments and biological substances
CPT/HCPCS: 36415; 71045; 73501; 73502; 80048; 80053; 81025; 82550; 83735; 85025; 85610; 86850; 86900; 86901; 86920; 93005; 96361; 96374; 96375; 96376; 99285

== ENCOUNTER → 2024-05-25 | Outpatient (CLI) | payer MEDICARE ==
[2024-05-25 15:26] LABS: ALT 48 U/L (8-44); AST 51 U/L (13-35); Albumin 4.3 g/dL (3.8-4.9); Albumin/Globulin Ratio 1.65 Ratio (1.60-3.17); Alkaline Phosphatase 223 U/L (41-126); Blood Urea Nitrogen 12.7 mg/dL (9.0-27.0); Calcium 10.2 mg/dL (8.7-10.3); Carbon Dioxide 21.1 mmol/L (21.6-31.8); Chloride 104 mmol/L (96-109); Chol/HDL Ratio 3.92 Ratio; Globulin 2.6 g/dL (1.6-3.3); Glucose 103 mg/dL (70-110); LDL Cholesterol,Calculated 99.7 mg/dL (0.0-131.0); Potassium 4.3 mmol/L (3.5-5.5); Sodium 139 mmol/L (135-145); Total Bilirubin 0.6 mg/dL (0.3-1.2); Total Protein 6.9 g/dL (6.2-8.2)
[2024-05-25 15:27] LABS: T4, Free (Free Thyroxine) 2.38 ng/dL (0.80-1.80)
== END | disposition home or self-care (01) ==
LOC: LABWHC1 11:03
PROVIDERS: ATTEND Family Medicine
CPT/HCPCS: 36415; 80053; 80061; 84439; 84443; 84481

== ENCOUNTER → 2024-07-06 | Outpatient (CLI) | payer MEDICARE ==
--- NOTE | 2024-07-07 14:28 | US ---
EXAMINATION TYPE: US liver DATE OF EXAM: 07/06/2024 COMPARISON: NONE CLINICAL INDICATION: Female, 54 years old with history of F10.10 ALCOHOL ABUSE; Alcohol abuse. Hx cho lecystectomy. TECHNIQUE: Grayscale and color Doppler imaging of the right upper quadrant. FINDINGS: EXAM MEASUREMENTS: Liver Length: 15.7 cm Gallbladder Wall: Surgically absent CBD: 0.63 cm, color Doppler imaging was utilized to isolate the common bile duct for measurement. Right Kidney: 10.5 x 4.8 x 4.2 cm DAM WORKER NOTES: Exam is limited due to gas. Pancreas: *Tail was obscured. Duct measures 2.2 mm at body. Liver: Appears slightly coarse in echotexture. Gallbladder: Surgically absent Evidence for sonographic Drake's sign: No CBD: Measures upper limits. Right Kidney: Prominent renal pelvis. IMPRESSION: Correlated for hepatic steatosis [facility], , 07/07/2024 2:25 PM
== END | disposition home or self-care (01) ==
LOC: RADUSWWP 07:53
PROVIDERS: ATTEND Family Medicine
DX: S72.142A Displaced intertrochanteric fracture of left femur, initial encounter for closed fracture (principal); K76.0 Fatty (change of) liver, not elsewhere classified; F10.10 Alcohol abuse, uncomplicated; Z90.49 Acquired absence of other specified parts of digestive tract
CPT/HCPCS: 76705

== ENCOUNTER → 2024-07-20 | Outpatient (CLI) | payer MEDICARE ==
--- NOTE | 2024-07-20 16:20 | BD ---
EXAMINATION TYPE: Axial Bone Density DATE OF EXAM: 07/20/2024 CLINICAL HISTORY: 54 years old Female. ICD-10 CODE: S72.142A DISPLACED INTERTROCHANTERIC FRACTURE OF LEFT FEMUR, , Additional History: Height: 63 Weight: 117.2 FRAX RISK QUESTIONS: Alcohol (3 or more units per day): no Family History (Parent hip fracture): no Glucocorticoids (More than 3mos): no (Ex: prednisone, prednisolone, methylprednisolone, dexamethasone, and hydrocortisone). History of Fracture in Adulthood: yes Secondary Osteoporosis: 1. Type 1 Diabetes: no 2. Hyperthyroidism: no 3. Menopause before 45: no 4. Malnutrition: no 5. Chronic liver disease: no Rheumatoid Arthritis: no Current Tobacco Use: no RISK FACTORS HISTORY OF: Hip Fracture (Right/Left): LT When: 2023 Spine Fracture: NO History of Wrist Fracture: ANGY Surgery to Spine/Hip(right/left)/Wrist (right/left): Lt Hip replaced When: 2023 MEDICATIONS: Thyroid Medications: levothyroxine How Long: since age 32 Osteoporosis Medications:no EXAM MEASUREMENTS: Bone mineral densitometry was performed using the [employer] System. Bone mineral density as measured about the Lumbar spine is: ----- L1-L4(G/cm2): 0.868 T Score Values are as follows: ----- L1: -2.5 ----- L2: -2.2 ----- L3: -2.6 ----- L4: -3.1 ----- L1-L4: -2.6 Z Score Values are as follows: ----- L1: -1.3 ----- L2: -1.0 ----- L3: -1.4 ----- L4: -1.9 ----- L1-L4: -1.4 Baseline Study Bone mineral density about the R hip (g/cm2): 0.480 T Score values are as follows: -----R Neck: -3.5 -----R Total: -4.2 Z Score values are as follows: -----R Neck: -2.2 -----R Total: -3.3 Baseline Study FRAX%s: The graph provided illustrates a 24.9% chance for a major osteoporotic fx and a 11.2% chance for the hips probability for fx in 10 years time. IMPRESSION: Osteoporosis (T Score less than -2.5). There is increased fracture risk and therapy is usually indicated based on age. Re-Screen 1-2 years. NOTE: T-SCORE=SD OF THE YOUNG ADULT MEAN. [facility], , 07/20/2024 4:18 PM
--- NOTE | 2024-07-20 22:25 | MM ---
Reason for Exam: Screening (asymptomatic). Last mammogram was performed 5 year(s) and 8 month(s) ago. Patient History: Menarche at age 11. Patient has no children. Hormonal Contraceptives for 17 years from age 17 until age 34. Maternal aunt had breast cancer, age 50. Risk Values: Ximena 5 year model risk: 1.3%. NCI Lifetime model risk: 9.1%. Prior Study Comparison: 05/22/2007 Bilateral Screening Mammogram, [facility]. 09/30/2009 Bilateral Screening Mammogram, [facility]. Tissue Density: The breasts are heterogeneously dense, which may obscure small masses. Findings: Analyzed By CAD. The pattern is symmetrical. No suspicious groups of microcalcifications, spiculated or lobular masses, architectural distortion or other secondary signs of malignancy are mammographically apparent. Overall Assessment: Benign, BI-RAD 2 Management: Screening Mammogram of both breasts in 1 year. A negative mammogram report should not preclude additional follow up of suspicious palpable abnormalities. Patient should continue monthly self breast exam. A clinical breast exam by your physician is recommended on an annual basis and results should be correlated with mammographic findings. Note on Ximena scores and lifetime risk: 1. A Ximena score greater than 3% is considered moderate risk. If this is the case, consider specialist referral to assess eligibility for a risk reducing agent. 2. If overall lifetime risk for the development of breast cancer is 20% or higher, the patient may qualify for future screening with alternating mammogram and breast MRI. [facility], , 07/20/2024 10:19 PM. Electronically signed and approved by: Chris Todd D.O. Radiologis
== END | disposition home or self-care (01) ==
LOC: RADMAMWWP 10:38
PROVIDERS: ATTEND Family Medicine
DX: Z12.31 Encounter for screening mammogram for malignant neoplasm of breast (principal); R92.333 Mammographic heterogeneous density, bilateral breasts; S72.142A Displaced intertrochanteric fracture of left femur, initial encounter for closed fracture; M81.0 Age-related osteoporosis without current pathological fracture; Z80.3 Family history of malignant neoplasm of breast
CPT/HCPCS: 77063; 77067; 77080

== ENCOUNTER → 2024-08-19 | Outpatient (CLI) | payer MEDICARE ==
[2024-08-19 19:58] LABS: ALT 35 U/L (8-44); AST 36 U/L (13-35); Albumin 4.5 g/dL (3.8-4.9); Alkaline Phosphatase 187 U/L (41-126); BUN/Creat Ratio 31.33 Ratio (12.00-20.00); Blood Urea Nitrogen 18.8 mg/dL (9.0-27.0); Calcium 10.3 mg/dL (8.7-10.3); Carbon Dioxide 19.2 mmol/L (21.6-31.8); Chloride 107 mmol/L (96-109); Glucose 95 mg/dL (70-110); Potassium 4.2 mmol/L (3.5-5.5); Sodium 140 mmol/L (135-145); Total Bilirubin 0.7 mg/dL (0.3-1.2); Total Protein 7.5 g/dL (6.2-8.2)
[2024-08-19 19:59] LABS: T4, Free (Free Thyroxine) 2.45 ng/dL (0.80-1.80)
[2024-08-19 21:52] LABS: HCT 39.7 % (37.2-46.3); HGB 12.7 g/dL (12.0-15.0); MCH 28.8 pg (27.0-32.0); Mean Platelet Volume 12.2 FL (9.5-12.2); NRBC Per 100 WBC 0 X 10*3/uL (0.00-0.01); Platelet Count 238 X 10*3/uL (140-440); RBC 4.41 X 10*6/uL (4.10-5.20); RDW 12.6 % (11.5-14.5); WBC 5.06 X 10*3/uL (4.50-10.00)
[2024-08-19 21:53] LABS: Basophils # (A) 0.05 X 10*3/uL (0.00-0.10); Eosinophils # (A) 0.33 X 10*3/uL (0.04-0.35); Eosinophils % (A) 6.5 %; Lymphocytes # (A) 2.24 X 10*3/uL (0.90-5.00); Lymphocytes % (A) 44.3 %; Monocytes # (A) 0.26 X 10*3/uL (0.20-1.00); Monocytes % (A) 5.1 %; Neutrophils # (A) 2.17 X 10*3/uL (1.80-7.70); Neutrophils % (A) 42.9 %
== END | disposition home or self-care (01) ==
LOC: LABWHC1 11:57
PROVIDERS: ATTEND Family Medicine
DX: I10 Essential (primary) hypertension (principal); E03.9 Hypothyroidism, unspecified
CPT/HCPCS: 36415; 80053; 84439; 84443; 84481; 85025

== ENCOUNTER → 2024-09-09 | Outpatient (CLI) | payer MEDICARE ==
--- NOTE | 2024-09-09 10:11 | CT ---
EXAMINATION TYPE: CT hip LT wo con CT DLP: 444 mGycm, Automated exposure control for dose reduction was used. DATE OF EXAM: 09/09/2024 9:53 AM COMPARISON: Left hip radiograph 04/21/2024, 04/20/2024 CLINICAL INDICATION:Female, 54 years old with history of M25.552 PAIN IN LEFT HIP; PHH, left hip pain . TECHNIQUE: Axial images were obtained of the left hip without the use of IV contrast. Additional cor onal and sagittal reformatted images and soft tissue and bone window were obtained for review. 3-D re construction was created on a separate workstation. FINDINGS: Postsurgical changes from intramedullary jhoan with screw involving the proximal left femur s panning previously seen intertrochanteric fracture. Hardware appears intact with appropriate alignmen t. No definitive periprosthetic lucency to suggest loosening. This creates streak artifact which limi ts evaluation. No dislocation. There is some sclerosis with curvilinear line involving the femoral he ad. No subchondral collapse identified. Mild degenerative changes of the left SI joint. No significan t soft tissue swelling or joint effusion is identified. Small amount of scarring identified within th e superficial left hip soft tissues. No organized fluid collection identified. Distal colonic diverticulosis without visualized acute diverticulitis. IMPRESSION: 1. Postsurgical changes from left proximal femur intramedullary jhoan and screw. Hardware appears inta ct with appropriate alignment. 2. Sclerosis with curvilinear hypodense line involving the left femoral head which may represent dev eloping avascular necrosis. No subchondral collapse. [facility], , 09/09/2024 10:09 AM
[2024-09-09 16:51] LABS: Basophils # (A) 0.05 X 10*3/uL (0.00-0.10); Basophils % (A) 0.8 %; Eosinophils # (A) 0.51 X 10*3/uL (0.04-0.35); Eosinophils % (A) 8.3 %; HCT 36.6 % (37.2-46.3); HGB 11.7 g/dL (12.0-15.0); Lymphocytes # (A) 2.02 X 10*3/uL (0.90-5.00); MCH 29.1 pg (27.0-32.0); Mean Platelet Volume 12.6 FL (9.5-12.2); Monocytes # (A) 0.36 X 10*3/uL (0.20-1.00); Monocytes % (A) 5.9 %; NRBC Per 100 WBC 0 X 10*3/uL (0.00-0.01); Neutrophils # (A) 3.18 X 10*3/uL (1.80-7.70); Neutrophils % (A) 51.8 %; Platelet Count 247 X 10*3/uL (140-440); RBC 4.02 X 10*6/uL (4.10-5.20); RDW 12.4 % (11.5-14.5); WBC 6.13 X 10*3/uL (4.50-10.00)
[2024-09-09 17:41] LABS: Erythrocyte Sedimentation Rate 39 mm/Hr (0-30)
== END | disposition home or self-care (01) ==
LOC: RADCTMAIN 09:10
PROVIDERS: ATTEND Orthopaedic Surgery
DX: M89.8X5 Other specified disorders of bone, thigh (principal); M25.552 Pain in left hip; Z98.890 Other specified postprocedural states
CPT/HCPCS: 85025; 85652; 86140

== ENCOUNTER → 2024-10-12 | Outpatient (CLI) | payer MEDICARE ==
[2024-10-12 13:40] LABS: INR 0.9 (<1.2); Partial Thromboplastin Time 22.3 sec (22.0-30.0); Prothrombin Time 10.5 sec (10.0-12.5)
[2024-10-12 18:47] LABS: Basophils # (A) 0.06 X 10*3/uL (0.00-0.10); Eosinophils % (A) 10.1 %; HCT 35.9 % (37.2-46.3); HGB 11.7 g/dL (12.0-15.0); Lymphocytes # (A) 2.56 X 10*3/uL (0.90-5.00); MCH 29.3 pg (27.0-32.0); MCHC 32.6 g/dL (32.0-37.0); MCV 89.8 FL (80.0-97.0); Mean Platelet Volume 11.6 FL (9.5-12.2); Monocytes # (A) 0.29 X 10*3/uL (0.20-1.00); Monocytes % (A) 4.9 %; NRBC Per 100 WBC 0 X 10*3/uL (0.00-0.01); Neutrophils # (A) 2.43 X 10*3/uL (1.80-7.70); Neutrophils % (A) 40.7 %; Platelet Count 264 X 10*3/uL (140-440); RDW 13.1 % (11.5-14.5); WBC 5.96 X 10*3/uL (4.50-10.00)
[2024-10-12 19:19] LABS: BUN/Creat Ratio 30.29 Ratio (12.00-20.00); Blood Urea Nitrogen 21.2 mg/dL (9.0-27.0); Carbon Dioxide 20.1 mmol/L (21.6-31.8); Chloride 105 mmol/L (96-109); Glucose 98 mg/dL (70-110); Potassium 4.4 mmol/L (3.5-5.5); Sodium 138 mmol/L (135-145)
[2024-10-12 19:20] LABS: ALT 32 U/L (8-44); AST 32 U/L (13-35); Albumin 4.5 g/dL (3.8-4.9); Albumin/Globulin Ratio 1.55 Ratio (1.60-3.17); Alkaline Phosphatase 200 U/L (41-126); Calcium 10.2 mg/dL (8.7-10.3); Globulin 2.9 g/dL (1.6-3.3); T4, Free (Free Thyroxine) 2.15 ng/dL (0.80-1.80); Total Bilirubin 0.8 mg/dL (0.3-1.2); Total Protein 7.4 g/dL (6.2-8.2)
== END | disposition home or self-care (01) ==
LOC: LABPAT 12:03
PROVIDERS: ATTEND Orthopaedic Surgery
DX: Z01.818 Encounter for other preprocedural examination (principal); Z22.322 Carrier or suspected carrier of Methicillin resistant Staphylococcus aureus; E03.9 Hypothyroidism, unspecified; M16.12 Unilateral primary osteoarthritis, left hip
CPT/HCPCS: 80053; 84439; 84443; 84481; 85025; 85610; 85730; 86850; 86900; 86901; 87070; 93005

== ENCOUNTER 2024-10-19 06:10 | Observation (INO) | payer MEDICARE ==
[~2024-10-19 06:10] MED LIST changes: +ACETAMINOPHEN TAB 500 MG TAB PO PRN; -LACTATED RINGERS 1,000 ML IV SCH; -LIDOCAINE 1% 20 ML VIAL (10MG/ML) FOR IV START INTRADERMA PRN; +TRANEXAMIC 1,000 MG/100ML-NACL 1,000 MG in SALINE 1 100ML.BAG IVPB PRN
[2024-10-19] MEDS ORDERED: fentaNYL (PF) 50 MCG/ML 2 ML AMP IVP PRN (06:29)
[2024-10-19] MEDS ORDERED: LIDOCAINE 1% (10MG/ML) FOR IV START INTRADERMA PRN (06:29)
[2024-10-19] MEDS: LACTATED RINGERS 1,000 ML IV SCH (06:45)
[2024-10-19] MEDS: GABAPENTIN 300 MG CAP PO PRN (07:00)
[2024-10-19] MEDS: MIDAZOLAM 2 MG/2 ML VIAL IV PRN (07:05)
[2024-10-19] MEDS: IV FLUID CONTINUATION 1,000 ML IV ONE (07:17)
[2024-10-19] MEDS: ONDANSETRON 4 MG/2 ML VIAL IVP ONE (07:18)
[2024-10-19] MEDS: DEXAMETHASONE SOD PHOSPHATE 4 MG/ML 1 ML VIAL IV ONE (07:18)
[2024-10-19] MEDS ORDERED: HYDROmorphone 0.5 MG/0.5 ML SYRINGE IVP PRN ×2 (07:20)
[2024-10-19] MEDS ORDERED: NALOXONE 0.4 MG/ML 1 ML VIAL IV PRN (07:20)
[2024-10-19] MEDS ORDERED: MAGNESIUM HYDROXIDE 2,400 MG/30 ML CUP PO PRN (07:20)
[2024-10-19] MEDS ORDERED: HYDROcodone/APAP 7.5-325MG 1 EACH TAB PO PRN (07:23)
[2024-10-19] MEDS ORDERED: SODIUM CHLORIDE 0.9% (PF) 10 ML VIAL ONE (07:30)
[2024-10-19] MEDS ORDERED: MIDAZOLAM 2 MG/2 ML VIAL ONE (07:30)
[2024-10-19] MEDS ORDERED: TRANEXAMIC 1,000 MG/100ML-NACL PREMIX BAG ONE (07:30)
[2024-10-19] MEDS ORDERED: fentaNYL (PF) 50 MCG/ML 2 ML AMP ONE (07:30)
[2024-10-19] MEDS ORDERED: PROPOFOL 10 MG/ML 20 ML VIAL IV ONE (07:30)
[2024-10-19] MEDS ORDERED: LIDOCAINE 1% INJ 10MG/ML (20 ML MDV) ONE (07:30)
[2024-10-19] MEDS ORDERED: PHENYLEPHRINE-0.9% NACL SYG 1,000 MCG/10 ML SYRINGE ONE (07:30)
[2024-10-19] MEDS ORDERED: ROPIVACAINE 5 MG/ML 30 ML VIAL ONE (07:30)
[2024-10-19] MEDS: ceFAZolin 1,000 MG in SODIUM CHLORIDE 0.9% 1,000 ML IRRIGATION ONE (07:33)
[2024-10-19] MEDS: ROPIVACAINE 5 MG/ML 30 ML VIAL MISCELLANE ONE ×2 (08:05→08:56)
--- NOTE | 2024-10-19 09:08 | P.OP ---
Date of Procedure: 10/19/24 Preoperative Diagnosis: 1. Painful left hip, status post closed reduction and intramedullary nailing left hip 2. Osteoarthritis left hip Postoperative Diagnosis: 1. Painful left hip, status post closed reduction and intramedullary nailing left hip 2. Osteoarthritis left hip Procedure(s) Performed: 1. Removal of hardware left hip 2. Left total hip arthroplasty Implants: [employer] Redapt femoral stem 15 mm, 190 mm [employer] R3, 3 hole hemispherical acetabular shell, 50 mm [employer] Reflection 6.5 mm cancellus screws, 20 mm, 15 mm, 25 mm [employer] R3, XLPE 20 acetabular liner [employer] Oxinium femoral head 36 mm, +4 All components were press-fit. The articulation is Oxinium on polyethylene. Anesthesia: spinal Surgeon: Henrik Whalen Play Leader #1: Brittany Rapp Estimated Blood Loss (ml): 250 Pathology: none sent Condition: stable Disposition: PACU Indications for Procedure: This is a 54-year-old female that had a intratrochanteric fracture of her left hip with subsequent closed intramedullary nailing on 04/21/2024. She continues to have pain in her left hip. Subsequent to osteoarthritis. After discussing the surgical nonsurgical treatment options with her at length, she wishes to proceed with removal of hardware and a left total hip arthroplasty with a direct anterior approach. Informed consent was obtained. Operative Findings: Operative findings are consistent with a retained intramedullary nail of the left hip and osteoarthritis of the Left Hip Description of Procedure: The patient was seen and evaluated in the preoperative area and the consent was reviewed. The operative site was marked with a skin marker. The patient verified the procedure and operative site. A BERE block was placed by anesthes ia in the preoperative area. The patient was then brought to the operating room and given preoperative antibiotics intravenously. 1 g of Tranexamic acid was also given intravenously. A spinal anesthetic was administered by the anesthesia department. The patient was then placed on the [place] table with the bony prominences well-padded. The hip area was then prepped with a ChloraPrep solution and draped in the usual sterile fashion. A universal timeout was then performed, which confirmed the patient's name, surgical site, ALLERGIES, and procedure being performed on the consent. Next the incision site was located at 1 cm distal and 4 cm lateral to the anterior superior iliac spine. The skin and subcutaneous tissues were sharply incised. Incision was carefully dissected down to the fascia overlying the tensor fascia lucila muscle. This fascia was then incised in line with the muscle fibers. Care was taken to stay laterally in order to avoid injuring the lateral femoral cutaneous nerve. Next, using blunt finger dissection, the tensor fascia lucila muscle was dissected off its investing fascia. The muscle was then carefully retracted laterally with a cobra retractor over the lateral neck of the femur. Next, the circumflex vessels were identified and cauterized using the Aquamantis device. The anterior hip capsule was then exposed. The capsule was then opened and an inverted T fashion. The retractors were then placed intracapsularly. The retractors were maintained intracapsular throughout the procedure. The proximal femur was then visualized. Fluoroscopic x-rays were then taken in order to evaluate the preoperative leg lengths. A small amount of traction was placed on the leg. Next, the screws were then removed from the femoral nail. There were 2 screws into the femoral head and one distal screw. These were removed without difficulty. The proximal femur was then reexposed. The femoral neck was then osteotomized at the appropriate level above the lesser trochanter. A small wedge of bone was then removed from the remaining femoral head. Next, using a corkscrew the femoral head was removed from the acetabulum. On gross visual inspection, the femoral head had complete loss of articular cartilage and multiple periarticular osteophytes. The femoral head was then measured. Attention was then turned to the acetabulum. The acetabulum was exposed and any remaining labrum was excised. Sequential reaming of the acetabulum was performed using fluoroscopic guidance until there was a good bed of bleeding cancellus bone. When the appropriate size was reached, a trial was then placed. The position and fit of the trial was checked with fluoroscopy. The trial was then removed. Then, using fluoroscopic guidance, the final implant was impacted at 20 of anteversion and 40 of abduction, and fully seated in the acetabulum. 3 screws were then placed in the acetabulum. Again fluoroscopy was used to check position of the screws. Next, the liner was then impacted, with a 20 elevated liner located in the anterior superior quadrant. Component locking was confirmed. Attention was then directed to the femur. With the aid of the [place] table, the femur was externally rotated to approximately 130, extended, and adducted under the opposite leg. A side hook was then placed under the proximal femur, and the side hook elevator was used to elevate the proximal femur while releasing the capsule. Retractors were then placed. A capsular release was performed, as well as a release of the conjoined tendon, which afforded excellent visualizatio n of the proximal femur. The proximal end of the trochanteric nail was then visualized and removed without difficulty. Next, a box osteotome was used to lateralize the proximal femur. A hands assembler was then used to locate the femoral canal. Sequential remaining was then performed with appropriate size which afforded excellent fixation in the diaphysis of the femur. A trial was then placed with appropriate head and neck, and the hip was gently reduced with the aid of the [place] table. Fluoroscopy was then used to check position of the components, as well as to evaluate the leg lengths and offset. The leg lengths and offset were measured as closely as possible to ensure stability of the hip. The hip was then gently dislocated and the trials were then removed. Final implants were then impacted and the hip was again reduced. Final fluoroscopic x-rays confirmed that the components were in anatomic position. The leg lengths and offset were measured and were found to coincide with the trial measurements. The hip was also taken through range of motion, and found to be stable. The hip was then copiously irrigated with antibiotic solution with pulsatile lavage. The hip was then irrigated with Irrisept solution. The soft tissues were then injected with a ropivacaine solution. A second dose of 1 g of Tranexamic acid was also given intravenously. The fascia was then closed with 2-0 strata fix suture. The subcutaneous tissue was closed with 3-0 Vicryl. The subcuticular tissue was closed with 3-0 moncryl suture. The skin was then closed with Exofin skin glue. After the glue and dried, and Optifoam silver impregnated dressing was applied. The patient was then transferred to the recovery room in stable condition. The bookkeeping assistant MATTHEW Hanna was required due to the complexity of surgery, and the need for skilled surgical services assistant for positioning, draping, exposure, retraction, and closure of the wound.
--- NOTE | 2024-10-19 09:20 | FL ---
EXAMINATION TYPE: FL guidance operating room, XR Hip Limited LT DATE OF EXAM: 10/19/2024 9:16 AM COMPARISON: Pre Operative Images if available both CT/MRI or plain film CLINICAL INDICATION: Female, 54 years old with history of LEFT ANTERIOR HIP; TECHNIQUE: FL guidance operating room, XR Hip Limited LT, multiple fluoroscopic images provided for p rocedure. DAP: 0.8390 mGym2 Gycm2 uGym2 cGycm2 or equivalent. FINDINGS: Fluoroscopic images during internal fixation/arthroplasty demonstrate hardware in appropriate positio n. Hardware appears intact. No immediate complication identified. IMPRESSION: 1. No evidence for intraoperative complication. 2. Please see the operative/procedural note for further details. [facility], , 10/19/2024 9:17 AM
[2024-10-19] MEDS: ONDANSETRON 4 MG/2 ML VIAL IVP PRN (09:49)
--- NOTE | 2024-10-19 10:08 | XR ---
EXAMINATION TYPE: XR Hip Limited LT DATE OF EXAM: 10/19/2024 9:47 AM COMPARISON: 04/21/2024 CLINICAL INDICATION: Female, 54 years old with history of Status post hip surgery, assess surgical al ignment; PHH, pain TECHNIQUE: XR Hip Limited LT; Frontal view FINDINGS: Post arthroplasty changes, hardware is intact, alignment is appropriate. No evidence of fra cture. Postoperative changes of the soft tissues with subcutaneous gas. No evidence of any acute osse ous pathology or joint dislocation. Evidence of prior fracture no acute fractures definitively visual ized. IMPRESSION: Hip arthroplasty with hardware intact and in appropriate alignment. No acute fracture. [facility], , 10/19/2024 10:06 AM
[2024-10-19] MEDS: HYDROmorphone 0.5 MG/0.5 ML SYRINGE IVP PRN (12:32)
[2024-10-19] MEDS: HYDROmorphone 1 MG/ML 1 ML SYRINGE IVP PRN (13:59)
[2024-10-19] MEDS: HYDROcodone/APAP 7.5-325MG 1 EACH TAB PO PRN (13:59)
[2024-10-19] MEDS: Pre Op ABX Message 1 EACH MISC MISCELLANE ONE (14:27)
[2024-10-19] MEDS: SODIUM CHLORIDE 0.9% 1,000 ML IV SCH (14:27)
--- NOTE | 2024-10-19 14:33 | P.ANPRN ---
Procedure Note - Anesthesia - Nerve Block Performed Left Darvin Single Time Out Performed: Yes ([id number]) Date of Procedure: 10/19/24 Location of Patient: PreOp Indication: Acute Post-Operative Pain, Analgesia, Dx/Pain Location (left hip), Requested by Surgeon Specifically requested for management of pain by DrRaymon: Henrik Whalen Sedation Type: Sedate with meaningful contact maintained Preparation: Sterile Prep Position: Supine Catheter: None Needle Types: Pajunk Needle Gauge: 21 Ultrasound used to visualize needle placement: Yes Ultrasound used to observe medication spread: Yes Injectate: 0.5% Ropivacaine (see comment for volume) (30 mL +10 mL of normal saline) Blood Aspirated: No Pain Paresthesia on Injection Noted: No Resistance on Injection: Normal Image Stored and Saved: Yes Events: Uneventful and Well Tolerated
[2024-10-19] MEDS: SENNOSIDES-DOCUSATE SODIUM 1 EACH TAB PO SCH (21:17)
[2024-10-19] MEDS: ASPIRIN 325 MG TAB PO SCH (21:17)
[2024-10-20 08:55] LABS: HCT 22.4 % (37.2-46.3); HGB 7.6 g/dL (12.0-15.0); MCH 29.7 pg (27.0-32.0); MCHC 33.9 g/dL (32.0-37.0); MCV 87.5 FL (80.0-97.0); Mean Platelet Volume 12.3 FL (9.5-12.2); NRBC Per 100 WBC 0 X 10*3/uL (0.00-0.01); Platelet Count 195 X 10*3/uL (140-440); RBC 2.56 X 10*6/uL (4.10-5.20); RDW 13.2 % (11.5-14.5)
[2024-10-20 08:56] LABS: Basophils # (A) 0.02 X 10*3/uL (0.00-0.10); Basophils % (A) 0.3 %; Eosinophils # (A) 0.11 X 10*3/uL (0.04-0.35); Eosinophils % (A) 1.7 %; Lymphocytes # (A) 2.59 X 10*3/uL (0.90-5.00); Lymphocytes % (A) 41.1 %; Monocytes # (A) 0.54 X 10*3/uL (0.20-1.00); Monocytes % (A) 8.6 %; Neutrophils # (A) 3.03 X 10*3/uL (1.80-7.70); Neutrophils % (A) 48.1 %
--- NOTE | 2024-10-20 09:08 | P.PN ---
Subjective Progress Note Date: 10/20/24 This is a 54-year-old fe male who is status post removal of left hip hardware and left total hip arthroplasty. This is postoperative day #1 and patient is seen and evaluated at bedside today. Patient states that she has a lot of pain in the left leg. Patient reports chronic weakness in both legs, but states that she was able to transfer to a chair with her walker today. Objective - Vital Signs Vital signs: Vital Signs Temp 98.6 F 10/20/24 07:25 Pulse 97 10/20/24 07:40 Resp 16 10/20/24 07:40 BP 94/60 10/20/24 07:25 Pulse Ox 98 10/20/24 07:25 FiO2 Intake & Output 10/19/24 10/20/24 10/20/24 18:59 06:59 18:59 Intake Total 951 1080 Output Total 500 Balance 451 1080 Weight 56.7 kg Intake: IV 951 Oral 1080 Output: Urine 250 Estimated Blood Loss 250 Other: # Voids 2 6 - Exam Vital signs are stable. Patient is in no acute distress and is alert and oriented 3. Calf is soft and nontender to palpation. Dressing is clean, dry, and intact. Patient has full foot and ankle motion without pain or difficulty. Sensation intact. Neurovascular status and circulatory status are intact. - Labs CBC & Chem 7: 10/20/24 03:49 Labs: Abnormal Lab Results - Last 24 Hours (Table) 10/20/24 Range/Units 03:49 RBC 2.56 L (4.10-5.20) X 10*6/uL Hgb 7.6 L (12.0-15.0) g/dL Hct 22.4 L (37.2-46.3) % MPV 12.3 H (9.5-12.2) FL Assessment and Plan (1) S/P total hip arthroplasty Current Visit: Yes Status: Acute Code(s): Z96.649 - PRESENCE OF UNSPECIFIED ARTIFICIAL HIP JOINT SNOMED Code(s): 662592947882 (2) S/P hardware removal Current Visit: Yes Status: Acute Code(s): Z98.890 - OTHER SPECIFIED POSTPROCEDURAL STATES SNOMED Code(s): 027906296 (3) Osteoarthritis of left hip Current Visit: Yes Status: Acute Code(s): M16.12 - UNILATERAL PRIMARY OSTEOARTHRITIS, LEFT HIP SNOMED Code(s): 899212731524787 Plan: Continue routine postop care and pain control. Continue anticoagulation with aspirin. Weightbearing as tolerated with a walker. Leave dressing in place for 7 days. Appreciate input from internal medicine. Anticipate discharge to [facility] in the next 24-48 hours.
[2024-10-20] MEDS ORDERED: ALBUTEROL NEBULIZED 2.5 MG/3 ML INHALATION PRN (09:49)
[2024-10-20] MEDS: hydrOXYzine pamoate 25 MG CAP PO PRN (09:53)
[2024-10-20] MEDS: BACLOFEN 10 MG TAB PO PRN (09:53)
[2024-10-20] MEDS: LORazepam 0.5 MG TAB PO SCH (11:07)
--- NOTE | 2024-10-20 13:03 | P.CONS ---
History of Present Illness - Reason for Consult Consult date: 10/20/24 Medical management - History of Present Illness History of present illness; patient is 54-year-old lady with past medical hi story significant for hypertension, hypothyroidism who presented the hospital for elective removal of hardware and left total hip arthroplasty. Patient has been following up outpatient with orthopedic for left hip pain. Patient underwent closed reduction and intramedullary fracture of left hip on 04/21/2024. Patient continues to have pain of the left hip that is interfering with her ADLs, discussion took place between orthopedics and patient was sent was made to proceed with left total hip arthroplasty and removal of previous hardware. Patient underwent the procedure on 10/20, postoperatively internal medicine team were consulted for medical management REVIEW OF SYSTEMS: CONSTITUTIONAL: No fever, no malaise, no fatigue. HEENT: No recent visual problems or hearing problems. Denied any sore throat. CARDIOVASCULAR: No chest pain, orthopnea, PND, no palpitations, no syncope. PULMONARY: No shortness of breath, no cough, no hemoptysis. GASTROINTESTINAL: No diarrhea, no nausea, no vomiting, no abdominal pain. NEUROLOGICAL: No headaches, no weakness, no numbness. HEMATOLOGICAL: Denies any bleeding or petechiae. GENITOURINARY: Denies any burning micturition, frequency, or urgency. MUSCULOSKELETAL/RHEUMATOLOGICAL: Left hip pain ENDOCRINE: Denies any polyuria or polydipsia. The rest of the 14-point review of systems is negative. PHYSICAL EXAMINATION: GENERAL: The patient is alert and oriented x3, not in any acute distress. Well developed, well nourished. HEENT: Pupils are round and equally reacting to light. EOMI. No scleral icterus. No conjunctival pallor. Normocephalic, atraumatic. No pharyngeal erythema. No thyromegaly. CARDIOVASCULAR: S1 and S2 present. No murmurs, rubs, or gallops. PULMONARY: Chest is clear to auscultation, no wheezing or crackles. ABDOMEN: Soft, nontender, nondistended, normoactive bowel sounds. No palpable organomegaly. MUSCULOSKELETAL: Left hip surgical incision EXTREMITIES: No cyanosis, clubbing, or pedal edema. NEUROLOGICAL: Gross neurological examination did not reveal any focal deficits. SKIN: No rashes. Assessment and plan Left hip pain status post left total hip arthroplasty with removal of hardware History of hypertension History of hypothyroidism Monitor vital signs Monitor CBC Continue pain management per orthopedics Continue DVT prophylaxis per orthopedics Aggressive bowel regimen to prevent opioid-induced constipation Hold blood pressure medications at this time as patient is normotensive Resume home meds PT and OT consulted Labs and medication were reviewed.. Continue same treatment. Continue with symptomatic treatment. Resume home medication. Monitor labs and vitals. DVT and GI prophylaxis. Further recommendations as per clinical course of the patient Dictation was produced using [employer] dictation software. please excuse any grammatical, word or spelling errors. Past Medical History Past Medical History: Asthma, Fibromyalgia, Hypertension, Musculoskeletal Disorder, Osteoarthritis (OA), Thyroid Disorder Additional Past Medical History / Comment(s): hx of colon polyps, chronic back pain/leg pain, DDD, hx of migraines, osteoporosis, neuropathy lower extremities, hx. fatty liver History of Any Multi-Drug Resistant Organisms: None Reported Past Surgical History: Cholecystectomy, Orthopedic Surgery, Uterine Ablation Additional Past Surgical History / Comment(s): septoplasty, ovarian cyst removed, ganglion cyst removed Past Anesthesia/Blood Transfusion Reactions: Postoperative Nausea & Vomiting (PONV) Additional Past Anesthesia/Blood Transfusion Reaction / Comm: no hx. of transfusion reaction Past Psychological History: Anxiety Smoking Status: Former smoker, Vaper Past Alcohol Use History: Rare Additional Past Alcohol Use History / Comment(s): SMOKES 1/2PPD FROM AGE 17, quit 2023, will occasionally vape Past Drug Use History: Marijuana Additional Drug Use History / Comment(s): occasionally smokes marijuana - Past Family History Mother Family Medical History: Cancer, Thyroid Disorder Additional Family Medical History / Comment(s): chest tumor, spread to brain Father Family Medical History: Congestive Heart Failure (CHF), Hypertension Medications and Allergies Home Medications Medication Instructions Recorded Confirmed Type Ibuprofen [Motrin] 600 mg PO TID PRN 10/11/17 10/19/24 History Baclofen 10 mg PO BID 04/20/24 10/19/24 History Levothyroxine Sodium [Synthroid] 100 mcg PO DAILY 04/20/24 10/19/24 History Albuterol Inhaler [Ventolin Hfa 1 - 2 puff INHALATION Q6H PRN 10/15/24 10/19/24 History Inhaler] Hydrocodone/Acet. 5/300 1 tab PO Q8H 10/15/24 10/19/24 History LORazepam [Ativan] 0.5 mg PO DAILY 10/15/24 10/19/24 History Losartan Potassium [Cozaar] 100 mg PO DAILY 10/15/24 10/19/24 History amLODIPine [Norvasc] 5 mg PO DAILY 10/15/24 10/19/24 History Aspirin 325 mg PO BID #60 tab 10/19/24 Rx HYDROcodone/APAP 7.5-325MG [Boyd 1 - 2 tab PO Q6H PRN #32 tab 10/19/24 Rx 7.5-325] Sennosides [Senokot] 2 tab PO DAILY PRN #60 tablet 10/19/24 Rx Allergies Allergy/AdvReac Type Severity Reaction Status Date / Time celecoxib [From Celebrex] Allergy Rash/Hives Verified 10/19/24 06:45 naproxen [From Aleve] Allergy Rash/Hives Verified 10/19/24 06:45 Sulfa (Sulfonamide Allergy Rash/Hives Verified 10/19/24 06:45 Antibiotics) Physical Exam Vitals: Vital Signs Temp Pulse Resp BP Pulse Ox 10/20/24 07:40 97 16 10/20/24 07:25 98.6 F 97 16 94/60 98 10/20/24 00:50 98.7 F 87 20 101/63 95 10/19/24 19:09 97.6 F 92 18 109/71 99 10/19/24 14:00 97.7 F 99 18 137/87 97 10/19/24 13:00 87 16 101/61 98 10/19/24 12:30 97 16 110/79 98 10/19/24 12:00 87 16 130/72 98 10/19/24 11:45 87 16 134/72 98 10/19/24 11:30 87 16 127/75 98 10/19/24 11:15 84 16 119/71 98 10/19/24 11:00 81 16 115/70 98 10/19/24 10:45 79 16 114/67 98 10/19/24 10:30 82 18 134/76 98 10/19/24 10:15 104 H 18 116/76 98 10/19/24 10:00 85 18 140/91 98 10/19/24 09:45 83 18 132/82 98 Intake and Output 10/19/24 10/20/24 10/20/24 22:59 06:59 14:59 Intake Total 1080 150 Balance 1080 150 Intake: Oral 1080 150 Other: # Voids 2 6 Results CBC & Chem 7: 10/20/24 03:49 Labs: Abnormal Lab Results - Last 24 Hours (Table) 10/20/24 Range/Units 03:49 RBC 2.56 L (4.10-5.20) X 10*6/uL Hgb 7.6 L (12.0-15.0) g/dL Hct 22.4 L (37.2-46.3) % MPV 12.3 H (9.5-12.2) FL
[2024-10-20] MEDS ORDERED: MORPHINE SULFATE 4 MG/ML SYRINGE IV PRN (14:22)
[2024-10-20] MEDS ORDERED: MORPHINE SULFATE 2 MG/ML SYRINGE IVP PRN ×2 (14:22)
[2024-10-20] MEDS: MORPHINE SULFATE 4 MG/ML SYRINGE IV PRN (17:07)
[2024-10-20] MEDS: SODIUM CHLORIDE 0.9% 1,000 ML IV SCH (20:41)
[2024-10-21 02:27] VITALS: RESP 18; TEMP 98.5
[2024-10-21] MEDS: LEVOTHYROXINE 100 MCG TAB PO SCH (05:51)
[2024-10-21 07:30] VITALS: BP 103/68; PULSE 100
[2024-10-21] MEDS ORDERED: KETOROLAC 15 MG/ML 1 ML VIAL IVP PRN (10:24)
--- NOTE | 2024-10-21 10:29 | P.DS ---
Providers Date of admission: 10/19/24 09:32 Expected date of discharge: 10/21/24 Attending physician: Henrik Whalen Consults: 10/19/24 07:20 Consult Physician Routine Consulting Provider: Jinny Duque Consult Reason/Comments: medical management Do you want consulting provider notified?: Yes Primary care physician: Maurice Delcid - Discharge Diagnosis(es) (1) S/P total hip arthroplasty Current Visit: Yes Status: Acute (2) S/P hardware removal Current Visit: Yes Status: Acute (3) Osteoarthritis of left hip Current Visit: Yes Status: Acute Hospital Course: This is a 54-year-old female with known history of degenerative arthritis of the left hip and previous intramedullary nailing of the left hip for intertrochanteric left hip fracture in April 2024. The patient presented for evaluation as an outpatient due to persistent pain in the left hip from osteoarthritis. After discussion and consideration patient elects to proceed with removal of hardware and left total hip arthroplasty. The patient is seen preoperatively by Dr. Whalen and medically cleared for surgery by their primary care physician. Patient is admitted to [facility] on 10/19/2024 for removal of hardware and left total hip arthroplasty. The procedure is performed without complication or sequelae. The patient is doing well postoperatively. Labs and vital signs are stable on day of discharge. On day of discharge patient's hip incision is healing well. There is minimal erythema. There is no drainage noted at this time. There is minimal soft tissue swelling to the hip and thigh. Patient has full foot and ankle motion without difficulty or pain. Calf is soft and nontender to palpation. Neurovascular status to the left lower extremity is intact. Patient is discharged home in good condition. Please see med rec for accurate list of home medications. Plan - Discharge Summary Discharge Rx Participant: Yes New Discharge Prescriptions: New Aspirin 325 mg PO BID #60 tab HYDROcodone/APAP 7.5-325MG [[place] 7.5-325] 1 - 2 tab PO Q6H PRN #32 tab PRN Reason: Pain Sennosides [Senokot] 2 tab PO DAILY PRN #60 tablet PRN Reason: Constipation hydrOXYzine pamoate [Vistaril] 25 mg PO Q6H PRN #30 capsule PRN Reason: Pain Ketorolac [Toradol] 10 mg PO Q6HR #12 tab No Action Ibuprofen [Motrin] 600 mg PO TID PRN PRN Reason: Pain Levothyroxine Sodium [Synthroid] 100 mcg PO DAILY LORazepam [Ativan] 0.5 mg PO DAILY amLODIPine [Norvasc] 5 mg PO DAILY Hydrocodone/Acet. 5/300 1 tab PO Q8H Baclofen 10 mg PO BID Losartan Potassium [Cozaar] 100 mg PO DAILY Albuterol Inhaler [Ventolin Hfa Inhaler] 1 - 2 puff INHALATION Q6H PRN PRN Reason: Shortness Of Breath Discharge Medication List Ibuprofen [Motrin] 600 mg PO TID PRN 10/11/17 [History] Baclofen 10 mg PO BID 04/20/24 [History] Levothyroxine Sodium [Synthroid] 100 mcg PO DAILY 04/20/24 [History] Albuterol Inhaler [Ventolin Hfa Inhaler] 1 - 2 puff INHALATION Q6H PRN 10/15/24 [History] Hydrocodone/Acet. 5/300 1 tab PO Q8H 10/15/24 [History] LORazepam [Ativan] 0.5 mg PO DAILY 10/15/24 [History] Losartan Potassium [Cozaar] 100 mg PO DAILY 10/15/24 [History] amLODIPine [Norvasc] 5 mg PO DAILY 10/15/24 [History] Aspirin 325 mg PO BID #60 tab 10/19/24 [Rx] HYDROcodone/APAP 7.5-325MG [[place] 7.5-325] 1 - 2 tab PO Q6H PRN #32 tab 10/19/24 [Rx] Sennosides [Senokot] 2 tab PO DAILY PRN #60 tablet 10/19/24 [Rx] Ketorolac [Toradol] 10 mg PO Q6HR #12 tab 10/21/24 [Rx] hydrOXYzine pamoate [Vistaril] 25 mg PO Q6H PRN #30 capsule 10/21/24 [Rx] Follow up Appointment(s)/Referral(s): Henrik Whalen DO [Doctor of Osteopathic Medicine] - 11/02/24 1:45 pm (With Brittany) Activity/Diet/Wound Care/Special Instructions: Weightbearing as tolerated with walker. Leave dressing intact. Dressing may be removed by home care nurse or by patient in 7 days. Then change dressing twice daily until follow up. May shower with initial dressing intact and after removal. If dressing become saturated, please remove. Please take aspirin 325mg twice daily for 30 days to prevent blood clots. Recommend use of compression stockings daily until follow up to help prevent swelling and blood clots. May remove at night before sleeping. Please follow-up with [facility] in 2 weeks and call with any questions or concerns, . [facility] - Discharge Disposition: HOME WITH HOME HEALTH SERVICES
--- NOTE | 2024-10-21 13:35 | P.PN ---
Subjective Progress Note Date: 10/21/24 patient is 54-year-old lady with past medical history significant for hypertension, hypothyroidism who presented the hospital for elective removal of hardware and left total hip arthroplasty. Patient has been following up outpatient with orthopedic for left hip pain. Patient underwent closed reduction and intramedullary fracture of left hip on 04/21/2024. Patient continues to have pain of the left hip that is interfering with her ADLs, discussion took place between orthopedics and patient was sent was made to proceed with left total hip arthroplasty and removal of previous hardware. Patient underwent the procedure on 10/20, postoperatively internal medicine team were consulted for medical management 10/21. Patient seen and examined. Left hip pain has improved. Currently patient is doing well, patient wants to be discharged home REVIEW OF SYSTEMS: CONSTITUTIONAL: No fever, no malaise,. CARDIOVASCULAR: No chest pain, no palpitations, no syncope. PULMONARY: No shortness of breath, no cough, GASTROINTESTINAL: No diarrhea, no nausea, no vomiting, no abdominal pain. NEUROLOGICAL: No headaches, no weakness, PHYSICAL EXAMINATION: GENERAL: The patient is alert and oriented x3, not in any acute distress. Well developed, well nourished. HEENT: Pupils are round and equally reacting to light. EOMI. No scleral icterus. No conjunctival pallor. Normocephalic, atraumatic. No pharyngeal erythema. No thyromegaly. CARDIOVASCULAR: S1 and S2 present. No murmurs, rubs, or gallops. PULMONARY: Chest is clear to auscultation, no wheezing or crackles. ABDOMEN: Soft, nontender, nondistended, normoactive bowel sounds. No palpable organomegaly. MUSCULOSKELETAL: No joint swelling or deformity. EXTREMITIES: No cyanosis, clubbing, or pedal edema. NEUROLOGICAL: Gross neurological examination did not reveal any focal deficits. SKIN: No rashes. Assessment and plan GENERAL: The patient is alert and oriented x3, not in any acute distress. Well developed, well nourished. HEENT: Pupils are round and equally reacting to light. EOMI. No scleral icterus. No conjunctival pallor. Normocephalic, atraumatic. No pharyngeal erythema. No thyromegaly. CARDIOVASCULAR: S1 and S2 present. No murmurs, rubs, or gallops. PULMONARY: Chest is clear to auscultation, no wheezing or crackles. ABDOMEN: Soft, nontender, nondistended, normoactive bowel sounds. No palpable organomegaly. MUSCULOSKELETAL: Left hip surgical incision EXTREMITIES: No cyanosis, clubbing, or pedal edema. NEUROLOGICAL: Gross neurological examination did not reveal any focal deficits. SKIN: No rashes. Assessment and plan Left hip pain status post left total hip arthroplasty with removal of hardware History of hypertension History of hypothyroidism Monitor vital signs Monitor CBC Continue pain management per orthopedics Continue DVT prophylaxis per orthopedics Aggressive bowel regimen to prevent opioid-induced constipation Resume home meds PT and OT recommend home care Labs and medication were reviewed.. Continue same treatment. Continue with symptomatic treatment. Resume home medication. Monitor labs and vitals. DVT and GI prophylaxis. Further recommendations as per clinical course of the patient Dictation was produced using [employer] dictation software. please excuse any grammatical, word or spelling errors. Objective - Vital Signs Vital signs: Vital Signs Temp 98.5 F 10/21/24 07:30 Pulse 100 10/21/24 07:30 Resp 18 10/21/24 07:30 BP 103/68 10/21/24 07:30 Pulse Ox 98 10/21/24 07:30 FiO2 Intake & Output 10/20/24 10/21/24 10/21/24 18:59 06:59 18:59 Intake Total 1390 560 Balance 1390 560 Intake: Intake, IV Titration 590 Amount Sodium Chloride 0.9% 1, 200 000 ml @ 100 mls/hr IV . Q10H SWATI Rx#:[id number] Sodium Chloride 0.9% 1, 390 000 ml @ 65 mls/hr IV . [id number] SWATI Rx#:[id number] Oral 800 560 Other: Voiding Method Bedside Commode Bedside Commode Bedpan Bedpan # Voids 5 6 1 - Labs CBC & Chem 7: 10/20/24 03:49
== END 2024-10-21 13:56 | disposition home health service (06) ==
LOC: OR 06:10 → INTOOBSV 09:32 → 4SSUR 09:32
PROVIDERS: ADMIT Orthopaedic Surgery; ATTEND Orthopaedic Surgery
DX: Z47.2 Encounter for removal of internal fixation device (principal); M16.12 Unilateral primary osteoarthritis, left hip; M25.752 Osteophyte, left hip; G89.18 Other acute postprocedural pain; E03.9 Hypothyroidism, unspecified; I10 Essential (primary) hypertension; F41.9 Anxiety disorder, unspecified; F17.290 Nicotine dependence, other tobacco product, uncomplicated; Z79.82 Long term (current) use of aspirin; Z79.890 Hormone replacement therapy; Z79.899 Other long term (current) drug therapy; Z88.2 Allergy status to sulfonamides; Z88.6 Allergy status to analgesic agent
CPT/HCPCS: 27130; 64473; 20680; 96376 ×3; 96365; 96366; 96375 ×2; 97530 ×2; 97162; 97166; 85025; 73501; G0378 ×3; G0379; C1776; J2250; J2270; J1100; J0690 ×2; J2405 ×3; J2003; J3010; J1171 ×4; J2795; J2704; J2371; 64999

== ENCOUNTER → 2024-11-02 | Outpatient (CLI) | payer MEDICARE ==
[2024-11-02 15:42] LABS: T4, Free (Free Thyroxine) 1.56 ng/dL (0.80-1.80)
== END | disposition home or self-care (01) ==
LOC: LABWHC1 11:27
PROVIDERS: ATTEND Family Medicine
DX: E03.9 Hypothyroidism, unspecified (principal)
CPT/HCPCS: 36415; 84439; 84443; 84481

== ENCOUNTER → 2025-01-20 | Outpatient (CLI) | payer MEDICARE | END | disposition home or self-care (01) | LOC: LABWHC1 09:43 | PROVIDERS: ATTEND Family Medicine | DX: E03.9 Hypothyroidism, unspecified (principal) | CPT/HCPCS: 36415; 84439; 84443; 84481 ==

== ENCOUNTER → 2025-03-03 | Outpatient (CLI) | payer MEDICARE ==
[2025-03-03 16:01] LABS: T4, Free (Free Thyroxine) 1.71 ng/dL (0.80-1.80)
== END | disposition home or self-care (01) ==
LOC: LABWHC1 10:51
PROVIDERS: ATTEND Family Medicine
DX: E03.9 Hypothyroidism, unspecified (principal)
CPT/HCPCS: 36415; 84439; 84443; 84481

== ENCOUNTER → 2025-03-10 | Outpatient (CLI) | payer MEDICARE ==
--- NOTE | 2025-03-11 07:40 | MR ---
EXAMINATION TYPE: MR lumbar spine wo con DATE OF EXAM: 03/10/2025 2:11 PM COMPARISON: None. CLINICAL INDICATION: Female, 54 years old with history of M54.16 RADICULOPATHY, LUMBAR REGION, Low ba ck pain, richard leg weakness TECHNIQUE: Multiplanar, multisequence images of the lumbar spine were acquired without IV contrast. FINDINGS: Susceptibility artifact at the left hip relating to underlying replacement. There is levoconvex scoliotic curvature of the lumbar spine. Conus medullaris is normal. There is mild degenerative disc disease with variable mild intervertebral disc desiccation and mild d isc bulging. Some mild edematous Modic type I endplate changes present anteriorly at L1-L2, L2-L3, an d L3-L4. No large focal disc herniation or significant spinal canal stenosis. Vertebral body heights are preserved and alignment is maintained. There is mild facet arthropathy mid to lower lumbar spine. On the right, there is minimal inferior foraminal narrowing at L2-L3 and L3-L4. No significant neurof oraminal stenosis. On the left, no significant neural foraminal stenosis. No prevertebral paravertebral soft tissue abnormality seen. No suspicious bone marrow replacement. IMPRESSION: 1. Levoconvex scoliotic curvature of the lumbar spine with mild multilevel degenerative disc disease. Some mild associated edematous Modic type I endplate changes anteriorly from L1 through L4 levels. A dditional mild facet arthropathy mid to lower lumbar spine. 2. No vertebral compression collapse or malalignment. 3. No large focal disc herniation or significant spinal canal stenosis. No significant neuroforaminal stenosis seen. [facility], , 03/11/2025 7:38 AM
== END | disposition home or self-care (01) ==
LOC: RADMRIMAIN 12:54
PROVIDERS: ATTEND Psychiatry & Neurology Neurology
DX: M41.86 Other forms of scoliosis, lumbar region (principal); M51.16 Intervertebral disc disorders with radiculopathy, lumbar region; R60.0 Localized edema; M47.26 Other spondylosis with radiculopathy, lumbar region
CPT/HCPCS: 72148